=== PATIENT | male | born 1945 | race Caucasian/White ===

== ENCOUNTER 2016-08-17 11:41 | Inpatient (IN) | payer MEDICARE, BC ==
[2016-08-17] VITALS (9 sets, daily range): BP systolic 113–151; BP diastolic 57–79; PULSE 64–81; RESP 16–20; TEMP 98.4; O2SAT 96–100
[~2016-08-17] VITALS: Ht 175.3 cm; Wt 100.0 kg
[~2016-08-17 11:41] MED LIST: ALBU3NEB INH; ASPI81 PO; BUPR150T3 PO; CELE40TA PO; CITA20TA4 PO; DOCU100T9 PO; FLUO.05%ST TOP; GLUCTAB PO; LANTUS2P SC; LANTUSP SQ; LASI20TA PO; LISI-363 PO; METO50TA PO; NOVOLOGP2 SQ; SUBO2MIS SL; TAMS0.4C67 PO; ZOCO80TA PO; [UNRECOGNIZED DRUG - OTHER] PO
[2016-08-17] MEDS ORDERED: TETANUS/DIPHTHERIA TOXOID ADULT 0.5 ML VIAL IM ONE (12:15)
--- NOTE | 2016-08-17 12:20 | PD ---
HPI Chief Complaint: Fall Time Seen by Provider: 12:03 Travel History International Travel<30 days: No Contact w/Intl Traveler<30days: No Traveled to known affect area: No History of Present Illness HPI 70-year-old male with history of diabetes, diabetic neuropathy, lives alone, brought in by ambulance for evaluation of lower back pain, frequent falls, gait ataxia. The patient reports having difficulty ambulating for the last 2 weeks. Over the last 2 days he has fallen about 10 times. He states he lives alone, and stays in his wheelchair, however when he gets up to use a restroom he has been falling to the floor. No head injury or LOC. Lower back pain is moderate , radiates down his bilateral legs, worse with movements. No fevers. Patient has multiple abrasions and ecchymosis on his bilateral upper and lower extremities with a laceration to his right leg which he states occurred 2 days ago. He is complaining of a tingling sensation in his bilateral legs. She also reports being incontinent of urine, however this occurs when he is unable to stand up to use the restroom. PFSH Past Medical History Arthritis: Yes Anxiety: Yes Depression: Yes Heart Rhythm Problems: No Cancer: No Cardiac Catheterization: Yes (NO STENTS) Cardiovascular Problems: Yes High Cholesterol: Yes Chest Pain: No Congestive Heart Failure: Yes Diabetes: Yes Diminished Hearing: Yes (hard of hearing) Endocrine: Yes Gastrointestinal Disorders: Yes Genitourinary: No Hypertension: Yes Immune Disorder: No Musculoskeletal: Yes Neurologic: Yes (DIABETIC NEUROPATHY) Psychiatric: No Reproductive: No Respiratory: Yes (emphysema) Past Surgical History Other Surgery: Yes (spinal cyst removed, unknown details) Social History Alcohol Use: No Tobacco Use: Yes (states2 ppd cigarettes) Substance Use: Yes (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 rx'd pain meds for past eight years) Allergies-Medications (Allergen,Severity, Reaction): Coded Allergies: Cymbalta (Verified Allergy, Severe, Shortness of Breath, 08/17/16) Lyrica (Verified Allergy, Severe, Shortness of Breath, 08/17/16) Penicillin (Verified Allergy, Intermediate, HIVES, 08/17/16) Reported Meds & Prescriptions Reported Meds & Active Scripts Active Reported Naprosyn (Naproxen) 500 Mg Tab 500 Mg PO BID Take with food Dicyclomine (Dicyclomine HCl) 10 Mg Cap 10 Mg PO TID Pantoprazole (Pantoprazole Sodium) 40 Mg Tab 40 Mg PO DAILY Take 30 minutes before breakfast Amitriptyline (Amitriptyline HCl) 75 Mg Tab 75 Mg PO HS Potassium Chloride ER (Potassium Chloride) 10 Meq Cap 10 Meq PO DAILY Zocor (Simvastatin) 40 Mg Tab 40 Mg PO HS Fish Oil 1000 mg (Rosalia-3 Fatty Acids) 1 Cap Cap 1,000 Mg PO DAILY Lantus Inj (Insulin Glargine) 100 Unit/Ml Inj 24 Units SQ BID Nystatin Topical 100,000 unit/gm Oint 1 Applic TOPICAL BID Apply thin layer to affected area(s) Ibuprofen 400 Mg Tab 400 Mg PO TID PRN Hydroxyzine HCl 50 Mg Tab 50 Mg PO BID Fluocinonide Topical (Fluocinonide) 0.05% Cream 1 Applic TOPICAL BID PRN Apply thin layer to affected area(s) Flunisolide Nasal [place] (Flunisolide) 0.025 Mg/Act Naspr 2 [place] EACH NARE DAILY PRN Buprenorphine-Naloxone 8-2 Mg Subl 1 Tab SL BID Wellbutrin SR 12 HR (Bupropion HCl) 150 Mg Tab 150 Mg PO Q12HR Dulcolax Supp (Bisacodyl) 10 Mg Supp 10 Mg DE BID PRN Ventolin Hfa 18 GM Inh (Albuterol Sulfate) 90 Mcg/Act Aer 2 Puff INH Q6H PRN Tamsulosin (Tamsulosin HCl) 0.4 Mg Cap 0.4 Mg PO HS Lisinopril 10 Mg Tab 10 Mg PO DAILY Colace (Docusate Sodium) 100 Mg Cap 100 Mg PO BID PRN Miralax Powder (Polyethylene Glycol 3350 Powder) 17 Gm Powd 17 Gm PO DAILY PRN Mix and dissolve one measuring cap-ful (17 grams) in water or juice. Triamcinolone Topical (Triamcinolone Acetonide) 0.1 % Oint 1 Applic TOPICAL BID PRN Multi Vitamin (Multiple Vitamin) 1 Tab Tab 1 Tab PO DAILY Toprol XL (Metoprolol Succinate) 50 Mg Tab 50 Mg PO BID Metformin (Metformin HCl) 1,000 Mg Tab 1,000 Mg PO BID With meals Capsaicin Topical (Capsaicin) 0.025% Cream 1 Applic TOPICAL QID PRN Aspirin Adult Low Strength (Aspirin) 81 Mg Chew 81 Mg PO DAILY Novolog Inj (Insulin Aspart) 100 Unit/Ml Inj 30 Units SQ TID Review of Systems Except as stated in HPI: all other systems reviewed are Neg Physical Exam Narrative GENERAL: Well-developed, well-nourished, comfortable, no acute distress. SKIN: Warm and dry. Several abrasions/areas of ecchymosis to bilateral upper and lower extremities with a vertical laceration to his right anterior leg that is healing by secondary intent, no signs of infection. HEAD: Atraumatic. Normocephalic. EYES: Pupils equal and round. No scleral icterus. No injection or drainage. ENT: Mucous membranes pink and moist. NECK: Trachea midline. No JVD. CARDIOVASCULAR: Regular rate and rhythm. No murmur appreciated. RESPIRATORY: No accessory muscle use. Clear to auscultation. Breath sounds equal bilaterally. GASTROINTESTINAL: Abdomen soft, non-tender, nondistended. MUSCULOSKELETAL: No obvious deformities. No clubbing. No cyanosis. No edema. Midline lumbar spine tenderness without step-off. Normal range of motion in all joints and extremities. NEUROLOGICAL: Awake and alert. No obvious cranial nerve deficits. Normal speech. Ataxia/incoordination in bilateral lower extremities with muscle strength 4-5 in bilateral lower extremities. Patient reports numbness/tingling sensation when bilateral lower extremities are palpated. He is unable to extend his great toe bilaterally. No saddle anesthesia.Absent patellar tendon reflexes bilaterally. No clonus. PSYCHIATRIC: Appropriate mood and affect; insight and judgment normal. Data Data Last Documented VS Vital Signs Date Time Temp Pulse Resp B/P Pulse Ox O2 Delivery O2 Flow Rate FiO2 08/17/16 14:30 72 18 144/69 97 Room Air 08/17/16 11:42 98.4 Orders Complete Blood Count With Diff (08/17/16 12:13) Comprehensive Metabolic Panel (08/17/16 12:13) Magnesium (Mg) (08/17/16 12:13) Beta Hydroxybutyrate (Acetone) (08/17/16 12:13) Urinalysis - C+S If Indicated (08/17/16 12:13) Ecg Monitoring (08/17/16 12:13) Iv Access Insert/Monitor (08/17/16 12:13) Oximetry (08/17/16 12:13) NPO (08/17/16 12:13) Sodium Chloride 0.9% Flush (Ns Flush) (08/17/16 12:15) Ct Brain W/O Iv Contrast(Rout) (08/17/16 ) Tetanus/Diphtheria Tox Adult (Tetanus/Di (08/17/16 12:15) Lorazepam Inj (Ativan Inj) (08/17/16 13:30) Mri L Spine W/O Contrast (08/17/16 ) Dexamethasone Inj (Decadron Inj) (08/17/16 14:45) Mri T Spine W/O Contrast (08/17/16 ) Mri C Spine W/O Contrast (08/17/16 ) Lorazepam Inj (Ativan Inj) (08/17/16 15:15) Admit Order (Ed Use Only) (08/17/16 15:09) Labs Laboratory Tests Test 08/17/16 12:30 White Blood Count 8.5 TH/MM3 Red Blood Count 5.31 MIL/MM3 Hemoglobin 13.6 GM/DL Hematocrit 40.9 % Mean Corpuscular Volume 77.0 FL Mean Corpuscular Hemoglobin 25.6 PG Mean Corpuscular Hemoglobin 33.2 % Concent Red Cell Distribution Width 20.6 % Platelet Count 250 TH/MM3 Mean Platelet Volume 7.6 FL Neutrophils (%) (Auto) 61.1 % Lymphocytes (%) (Auto) 25.2 % Monocytes (%) (Auto) 8.6 % Eosinophils (%) (Auto) 4.2 % Basophils (%) (Auto) 0.9 % Neutrophils # (Auto) 5.2 TH/MM3 Lymphocytes # (Auto) 2.1 TH/MM3 Monocytes # (Auto) 0.7 TH/MM3 Eosinophils # (Auto) 0.4 TH/MM3 Basophils # (Auto) 0.1 TH/MM3 CBC Comment DIFF FINAL Differential Comment Urine Color YELLOW Urine Turbidity CLEAR Urine pH 6.0 Urine Specific [place] 1.020 Urine Protein NEG mg/dL Urine Glucose (UA) NEG mg/dL Urine Ketones NEG mg/dL Urine Occult Blood NEG Urine Nitrite NEG Urine Bilirubin NEG Urine Urobilinogen 2.0 MG/DL Urine Leukocyte Esterase SMALL Urine RBC 1 /hpf Urine WBC 3 /hpf Urine Squamous Epithelial <1 /hpf Cells Microscopic Urinalysis Comment CULT NOT INDICATED Sodium Level 137 MEQ/L Potassium Level 4.4 MEQ/L Chloride Level 100 MEQ/L Carbon Dioxide Level 31.6 MEQ/L Anion Gap 5 MEQ/L Blood Urea Nitrogen 23 MG/DL Creatinine 0.71 MG/DL Estimat Glomerular Filtration 110 ML/MIN Rate Random Glucose 103 MG/DL Calcium Level 8.9 MG/DL Magnesium Level 2.3 MG/DL Total Bilirubin 0.4 MG/DL Aspartate Amino Transf 46 U/L (AST/SGOT) Alanine Aminotransferase 54 U/L (ALT/SGPT) Alkaline Phosphatase 70 U/L Total Protein 6.8 GM/DL Albumin 3.3 GM/DL B-Hydroxybutyrate 0.10 MMOL/L MDM Medical Decision Making Medical Screen Exam Complete: Yes Emergency Medical Condition: Yes Differential Diagnosis Cauda equina syndrome, spinal stenosis, intracranial abnormality, metabolic abnormality, Narrative Course Vital signs show heart rate 64, blood pressure 113/65, pulse ox 98% on room air , oral temp of 98.4F. CBC is unremarkable. CMP is unremarkable. UA is within normal limits. CT head: No acute intracranial disease. MRI lumbar spine: CONCLUSION: 1. Severe central canal stenosis at the L4-5 level secondary to disc bulge and degenerative change involving the facets. 2. Moderate to severe central canal stenosis at the L3-4 level secondary to disc bulge and degenerative change involving the facets. 3. Mild central canal stenosis at the L1-2 and L2-3 levels. 4. Diffuse moderate to severe degenerative disc change. 5. Narrowing of the neuroforamina bilaterally at the L3-4 and L4-5 levels. Case discussed with neurosurgeon construction ironworker helper Dr. Briceno. He would like me to order stat MRI T and C-spine. He plans for emergent decompressive surgery after these studies are performed. Case discussed with medical device sales. The patient will be admitted to their service under Dr. Peres. Laceration on right leg occurred 2 days ago and will be allowed to heal by secondary intent. Several attempts were made to obtain T and C spine MRIs, however the patient complained of both pain and claustrophobia while laying flat in the MRI machine. He was given several doses of Ativan, however he was still unable to lay still for the exam. Neurosurgeon Dr. Briceno made aware of this. He will contact anesthesia to see if procedural sedation can be performed to obtain necessary MRIs. Diagnosis Primary Impression: Spinal cord compression Additional Impressions: Spinal stenosis of lumbar region Frequent falls Admitting Information Admitting Physician Requests: Admit Quinten Weathers MD Aug 17, 2016 12:20
[2016-08-17] MEDS ORDERED: TRIAM.1%T TOPICAL (12:43)
[2016-08-17] MEDS ORDERED: BUPR150CR PO (12:43)
[2016-08-17] MEDS ORDERED: TOPR50TA PO (12:43)
[2016-08-17] MEDS ORDERED: AMIT75TA2 PO (12:43)
[2016-08-17] MEDS ORDERED: OMEG100037 PO (12:43)
[2016-08-17] MEDS ORDERED: NOVOLOGSS SQ (12:43)
[2016-08-17] MEDS ORDERED: MIRA33504 PO (12:43)
[2016-08-17] MEDS ORDERED: NAPR500 PO (12:43)
[2016-08-17] MEDS ORDERED: DULC10SU3 PR (12:43)
[2016-08-17] MEDS ORDERED: BUPR1SUB6 SL (12:43)
[2016-08-17] MEDS ORDERED: MULT-135 PO (12:43)
[2016-08-17] MEDS ORDERED: COLA100C3 PO (12:43)
[2016-08-17] MEDS ORDERED: IBUP400T20 PO (12:43)
[2016-08-17] MEDS ORDERED: CAPS0.022 TOPICAL (12:43)
[2016-08-17] MEDS ORDERED: TAMS0.4C4 PO (12:43)
[2016-08-17] MEDS ORDERED: LANTUS2P SQ (12:43)
[2016-08-17] MEDS ORDERED: FLUO0.05 TOPICAL (12:43)
[2016-08-17] MEDS ORDERED: FLUN25I EACH NARE (12:43)
[2016-08-17] MEDS ORDERED: LISI10TA3 PO (12:43)
[2016-08-17] MEDS ORDERED: METF1000 PO (12:43)
[2016-08-17] MEDS ORDERED: DICY10CA12 PO (12:43)
[2016-08-17] MEDS ORDERED: HYDR50TA94 PO (12:43)
[2016-08-17] MEDS ORDERED: POTA10CA PO (12:43)
[2016-08-17] MEDS ORDERED: NYST100084 TOPICAL (12:43)
[2016-08-17] MEDS ORDERED: PANT40TA3 PO (12:43)
[2016-08-17] MEDS ORDERED: CITA20TA4 PO (12:43)
[2016-08-17] MEDS ORDERED: VENTAER INH (12:43)
[2016-08-17] MEDS ORDERED: ASPI81CH14 PO (12:43)
[2016-08-17] MEDS ORDERED: ZOCO40TA PO (12:43)
[2016-08-17 12:52] LABS: AUTOMATED NEUTROPHIL # 5.2 TH/MM3 (1.8-7.7); BASOPHIL # 0.1 TH/MM3 (0-0.2); BASOPHIL % 0.9 % (0.0-2.0); EOSINOPHIL # 0.4 TH/MM3 (0-0.4); EOSINOPHIL % 4.2 % (0.0-4.0); HEMATOCRIT 40.9 % (39.0-51.0); HEMO FLAGS DIFF FINAL; LYMPH % 25.2 % (9.0-44.0); LYMPHOCYTE # 2.1 TH/MM3 (1.0-4.8); MEAN CORPUSCULAR HEMOGLOBIN 25.6 PG (27.0-34.0); MEAN CORPUSCULAR HGB CONC 33.2 % (32.0-36.0); MONO % 8.6 % (0.0-8.0); NEUT % 61.1 % (16.0-70.0); PLATELET COUNT 250 TH/MM3 (150-450); RED BLOOD COUNT 5.31 MIL/MM3 (4.50-5.90); RED CELL DISTRIBUTION WIDTH 20.6 % (11.6-17.2); WHITE BLOOD COUNT 8.5 TH/MM3 (4.0-11.0)
[2016-08-17 13:01] LABS: BLOOD, URINE NEG (NEG); COMMENT (UR) CULT NOT INDICATED; CULTURE IF INDICATED CULT NOT INDICATED; GLUCOSE,URINE NEG (NEG); KETONE, URINE NEG (NEG); NITRITE,URINE NEG (NEG); SQUAMOUS EPITHELIAL CELL URINE <1 /hpf (0-5); URINE COLOR YELLOW (YELLW/STRAW)
--- NOTE | 2016-08-17 13:02 | RADRPT ---
EXAM DATE/TIME: 08/17/2016 12:51 [facility] COMPARISON: No previous studies available for comparison. INDICATIONS : Frequent falls. Weakness. RADIATION DOSE: 45.60 CTDIvol (mGy) MEDICAL HISTORY : Cardiovascular disease. Hypertension. Diabetes. SURGICAL HISTORY : None. ENCOUNTER: Initial ACUITY: 2 days PAIN SCALE: 5/10 LOCATION: cranial TECHNIQUE: Multiple contiguous axial images were obtained of the head. Using automated exposure control and adj ustment of the mA and/or kV according to patient size, radiation dose was kept as low as reasonably a chievable to obtain optimal diagnostic quality images. FINDINGS: CEREBRUM: The ventricles are normal for age. No evidence of midline shift, mass lesion, hemorrhage or acute in farction. No extra-axial fluid collections are seen. POSTERIOR FOSSA: The cerebellum and brainstem are intact. The 4th ventricle is midline. The cerebellopontine angle i s unremarkable. EXTRACRANIAL: The visualized portion of the orbits is intact. SKULL: The calvaria is intact. No evidence of skull fracture. CONCLUSION: No acute intracranial disease. Isauro Farnsworth MD on August 17, 2016 at 12:59 Board Certified Radiologist. This report was verified electronically.
[2016-08-17 13:15] LABS: ALT (GPT) 54 U/L (12-78); ANION GAP 5 MEQ/L (5-15); AST (GOT) 46 U/L (15-37); BICARBONATE 31.6 MEQ/L (21.0-32.0); BLOOD UREA NITROGEN 23 MG/DL (7-18); CHLORIDE 100 MEQ/L (98-107); GLOMERULAR FILTRATION RATE 110 ML/MIN (>89); MAGNESIUM 2.3 MG/DL (1.5-2.5); POTASSIUM 4.4 MEQ/L (3.5-5.1); SODIUM (NA) 137 MEQ/L (136-145)
[2016-08-17 13:23] LABS: ALKALINE PHOSPHATASE 70 U/L (45-117); TOTAL BILIRUBIN ADULT 0.4 MG/DL (0.2-1.0)
[2016-08-17] MEDS ORDERED: LORazepam 2 MG/ML VIAL IV PUSH ONE ×4 (13:30→16:00)
[2016-08-17] MEDS: SODIUM CHLORIDE 0.9% FLUSH 5 ML FLUSH IVF PRN ×2 (13:32→15:18)
--- NOTE | 2016-08-17 14:30 | RADRPT ---
EXAM DATE/TIME: 08/17/2016 13:42 [facility] COMPARISON: No previous studies available for comparison. INDICATIONS : Inability to ambulate. Low back pain. MEDICAL HISTORY : Diabetes mellitus type 2. SURGICAL HISTORY : Fusion, lumbar. ENCOUNTER: Initial ACUITY: 1 day PAIN SCORE: 5/10 LOCATION: Paraspinal TECHNIQUE: Multiplanar multisequence MRI of the lumbar spine was performed without contrast. FINDINGS: The study is degraded by mild motion artifact. The most caudal appearing lumbar vertebra is numbered as L5. VERTEBRAE: The vertebral bodies are intact. There is discogenic edema and Modic type changes in the endplates. N ormal alignment. DISCS: Diffuse degenerative disc changes are noted with disc space narrowing, sclerosis and hypertrophic bi nge. There is desiccation. CONUS: Normal level and configuration. T12-L1: The thecal sac has a normal diameter. No evidence of disc bulge or protrusion. The neural foramina are patent bilaterally. L1-L2: There is a diffuse annular disc bulge with flattening of the anterior thecal sac and no focal protrus ion. There are degenerative change involving the facet joints with mild central canal stenosis. L2-L3: There is a diffuse annular disc bulge with mild flattening of the anterior thecal sac and no focal pr otrusion. There are mild degenerative changes involving the facet joints. The neural foramina are pat ent. There is mild central canal stenosis. L3-L4: There is a moderate annular disc poles with flattening of anterior thecal sac and narrowing of the ne ural foramina bilaterally. There are degenerative changes involving facet joints with moderate to sev ere central canal stenosis. L4-L5: There is a diffuse annular disc poles with flattening of the anterior thecal sac and narrowing of the neural foramina. There are degenerative changes involving the facet joints with severe central canal stenosis. L5-S1: Annular disc bulge with mild flattening of the anterior thecal sac and no focal protrusion. There is narrowing of the neural foramina right greater than left. Visualization is suboptimal secondary to mo tion artifact. There are degenerative changes involving the facet joints with no central canal stenos is. CONCLUSION: 1. Severe central canal stenosis at the L4-5 level secondary to disc bulge and degenerative change in volving the facets. 2. Moderate to severe central canal stenosis at the L3-4 level secondary to disc bulge and degenerati ve change involving the facets. 3. Mild central canal stenosis at the L1-2 and L2-3 levels. 4. Diffuse moderate to severe degenerative disc change. 5. Narrowing of the neuroforamina bilaterally at the L3-4 and L4-5 levels. Sandor Escoto MD on August 17, 2016 at 14:21 Board Certified Radiologist. This report was verified electronically.
[2016-08-17] MEDS ORDERED: DEXAMETHASONE SOD PHOS 20 MG/5 ML VIAL IV PUSH ONE (14:45)
--- NOTE | 2016-08-17 15:11 | HHI.HP ---
[facility] Service Family Medicine Primary Care Physician [facility] Admission Diagnosis spinal stenosis, spinal cord compression, frequent falls Diagnoses: International Travel<30 Days: No Contact w/Intl Traveler<30days: No Known Affected Area: No History of Present Illness History limited due to Ativan given at time of interview as well as being a poor historian. Patient is a 70-year-old male with PMH significant for DM who presents today due to frequent falls over the last week. Reports that his legs do not hold him up. Has fallen about 10 times within the last 48 hours. Denies any preceding events such as trauma. Denies any urinary retention or incontinence or bowel incontinence. Reports sharp lower back pain that radiates down to bilateral extremities. Endorses bilateral peripheral neuropathy that limits some of his sensation/pain. Prior to this week he endorses some lower back pain over the last several weeks but otherwise reports no acute changes. Symptoms improved when leaning forward. (Rajni Gomez MD R2) Review of Systems ROS Limitations: Poor Historian Constitutional: DENIES: Fever, Change in appetite Eyes: DENIES: Blurred vision Ears, nose, mouth, throat: DENIES: Throat pain, Running Nose Respiratory: DENIES: Shortness of breath Cardiovascular: DENIES: Chest pain, Lower Extremity Edema Gastrointestinal: DENIES: Abdominal pain, Constipation, Diarrhea, Nausea, Vomiting Genitourinary: DENIES: Urinary frequency, Urinary incontinence, Dysuria Musculoskeletal: COMPLAINS OF: Back pain Hematologic/lymphatic: COMPLAINS OF: Bruising Neurologic: COMPLAINS OF: Abnormal gait, DENIES: Headache (Rajni Gomez MD R2) Past Family Social History Past Medical History Diabetes complicated by peripheral neuropathy HTN Depression HLD Past Surgical History Left knee surgery Unknown upper cervical/thoracic spinal surgery Reported Medications Reported Meds & Active Scripts Active Reported Naprosyn (Naproxen) 500 Mg Tab 500 Mg PO BID Take with food Dicyclomine (Dicyclomine HCl) 10 Mg Cap 10 Mg PO TID Pantoprazole (Pantoprazole Sodium) 40 Mg Tab 40 Mg PO DAILY Take 30 minutes before breakfast Amitriptyline (Amitriptyline HCl) 75 Mg Tab 75 Mg PO HS Potassium Chloride ER (Potassium Chloride) 10 Meq Cap 10 Meq PO DAILY Zocor (Simvastatin) 40 Mg Tab 40 Mg PO HS Fish Oil 1000 mg ([place]-3 Fatty Acids) 1 Cap Cap 1,000 Mg PO DAILY Lantus Inj (Insulin Glargine) 100 Unit/Ml Inj 24 Units SQ BID Nystatin Topical 100,000 unit/gm Oint 1 Applic TOPICAL BID Apply thin layer to affected area(s) Ibuprofen 400 Mg Tab 400 Mg PO TID PRN Hydroxyzine HCl 50 Mg Tab 50 Mg PO BID Fluocinonide Topical (Fluocinonide) 0.05% Cream 1 Applic TOPICAL BID PRN Apply thin layer to affected area(s) Flunisolide Nasal [place] (Flunisolide) 0.025 Mg/Act Naspr 2 [place] EACH NARE DAILY PRN Buprenorphine-Naloxone 8-2 Mg Subl 1 Tab SL BID Wellbutrin SR 12 HR (Bupropion HCl) 150 Mg Tab 150 Mg PO Q12HR Dulcolax Supp (Bisacodyl) 10 Mg Supp 10 Mg NV BID PRN Ventolin Hfa 18 GM Inh (Albuterol Sulfate) 90 Mcg/Act Aer 2 Puff INH Q6H PRN Tamsulosin (Tamsulosin HCl) 0.4 Mg Cap 0.4 Mg PO HS Lisinopril 10 Mg Tab 10 Mg PO DAILY Colace (Docusate Sodium) 100 Mg Cap 100 Mg PO BID PRN Miralax Powder (Polyethylene Glycol 3350 Powder) 17 Gm Powd 17 Gm PO DAILY PRN Mix and dissolve one measuring cap-ful (17 grams) in water or juice. Triamcinolone Topical (Triamcinolone Acetonide) 0.1 % Oint 1 Applic TOPICAL BID PRN Multi Vitamin (Multiple Vitamin) 1 Tab Tab 1 Tab PO DAILY Toprol XL (Metoprolol Succinate) 50 Mg Tab 50 Mg PO BID Metformin (Metformin HCl) 1,000 Mg Tab 1,000 Mg PO BID With meals Capsaicin Topical (Capsaicin) 0.025% Cream 1 Applic TOPICAL QID PRN Aspirin Adult Low Strength (Aspirin) 81 Mg Chew 81 Mg PO DAILY Novolog Inj (Insulin Aspart) 100 Unit/Ml Inj 30 Units SQ TID (Rajni Gomez MD R2) Allergies: Coded Allergies: Cymbalta (Verified Allergy, Severe, Shortness of Breath, 08/17/16) Lyrica (Verified Allergy, Severe, Shortness of Breath, 08/17/16) Penicillin (Verified Allergy, Intermediate, HIVES, 08/17/16) Family History Unknown. Reports mother and father were healthy Social History Lives alone Tobacco: 1.5ppd x45yrs Alcohol: Denies Illicit: Denies (Rajni Gomez MD R2) Physical Exam Vital Signs Vital Signs Date Time Temp Pulse Resp B/P Pulse Ox O2 Delivery O2 Flow Rate FiO2 08/17/16 12:30 99 Room Air 08/17/16 12:24 100 Room Air 08/17/16 11:42 98.4 64 17 113/65 98 Physical Exam GENERAL: This is a well-nourished, well-developed patient, in no apparent distress. Sitting comfortably in bed. SKIN: Venous stasis hyperpigmentation on bilateral lower extremities. Multiple superficial lacerations over her right lower extremity from falls. Multiple bruises of varying ages on right mid back, bilateral buttocks, sacrum, and right elbow. EYES: Pupils equal round and reactive. Extraocular motions intact. No scleral icterus. No injection or drainage. ENT: Nose without bleeding, purulent drainage. Throat without erythema, tonsillar hypertrophy or exudate. Uvula midline. Airway patent. NECK: No lymphadenopathy. CARDIOVASCULAR: Regular rate and rhythm without murmurs, gallops, or rubs. RESPIRATORY: Diffuse bilateral wheezes. Good air movement bilaterally. GASTROINTESTINAL: Abdomen soft, non-tender, nondistended. No hepato-splenomegaly , or palpable masses. No guarding. MUSCULOSKELETAL: Extremities without clubbing, cyanosis. 1+ pitting edema. No calf tenderness. Able to move bilateral feet. Able to sit up and turn in bed independently. NEUROLOGICAL: Awake and alert. Normal speech. Laboratory Laboratory Tests Test 08/17/16 12:30 White Blood Count 8.5 Red Blood Count 5.31 Hemoglobin 13.6 Hematocrit 40.9 Mean Corpuscular Volume 77.0 Mean Corpuscular Hemoglobin 25.6 Mean Corpuscular Hemoglobin 33.2 Concent Red Cell Distribution Width 20.6 Platelet Count 250 Mean Platelet Volume 7.6 Neutrophils (%) (Auto) 61.1 Lymphocytes (%) (Auto) 25.2 Monocytes (%) (Auto) 8.6 Eosinophils (%) (Auto) 4.2 Basophils (%) (Auto) 0.9 Neutrophils # (Auto) 5.2 Lymphocytes # (Auto) 2.1 Monocytes # (Auto) 0.7 Eosinophils # (Auto) 0.4 Basophils # (Auto) 0.1 CBC Comment DIFF FINAL Differential Comment Urine Color YELLOW Urine Turbidity CLEAR Urine pH 6.0 Urine Specific [place] 1.020 Urine Protein NEG Urine Glucose (UA) NEG Urine Ketones NEG Urine Occult Blood NEG Urine Nitrite NEG Urine Bilirubin NEG Urine Urobilinogen 2.0 Urine Leukocyte Esterase SMALL Urine RBC 1 Urine WBC 3 Urine Squamous Epithelial <1 Cells Microscopic Urinalysis Comment CULT NOT INDICATED Sodium Level 137 Potassium Level 4.4 Chloride Level 100 Carbon Dioxide Level 31.6 Anion Gap 5 Blood Urea Nitrogen 23 Creatinine 0.71 Estimat Glomerular Filtration 110 Rate Random Glucose 103 Calcium Level 8.9 Magnesium Level 2.3 Total Bilirubin 0.4 Aspartate Amino Transf 46 (AST/SGOT) Alanine Aminotransferase 54 (ALT/SGPT) Alkaline Phosphatase 70 Total Protein 6.8 Albumin 3.3 B-Hydroxybutyrate 0.10 (Rajni Gomez MD R2) Result Diagram: 08/17/16 1230 08/17/16 1230 Imaging Last Impressions Lumbar Spine MRI 08/17/16 0000 Signed Impressions: Service Date/Time: Wednesday, August 17, 2016 13:42 - CONCLUSION: 1. Severe central canal stenosis at the L4-5 level secondary to disc bulge and degenerative change involving the facets. 2. Moderate to severe central canal stenosis at the L3-4 level secondary to disc bulge and degenerative change involving the facets. 3. Mild central canal stenosis at the L1-2 and L2-3 levels. 4. Diffuse moderate to severe degenerative disc change. 5. Narrowing of the neuroforamina bilaterally at the L3-4 and L4-5 levels. Sandor Escoto MD Head CT 08/17/16 0000 Signed Impressions: Service Date/Time: Wednesday, August 17, 2016 12:51 - CONCLUSION: No acute intracranial disease. Isauro Farnsworth MD (Rajni Gomez MD R2) Assessment and Plan Assessment and Plan 70yo male with history significant for diabetes. Admitted due to spinal stenosis causing frequent falls. Code Status full Discussed Condition With Dr. Peres and Dr. Galeas (Rajni Gomez MD R2) Attending Attestation Patient seen and examined. Case reviewed and discussed with the resident team. Agree with plan of care as discussed with me and documented in the resident note. (Brenda Peres MD) Problem List: (1) Spinal stenosis of lumbar region Status: Acute Plan: Frequent falls 1 week with no associated bowel or bladder incontinence/ retention. Endorses lower back pain that radiates down to bilateral legs. No preceding events. -CBC, BMP, UA unremarkable -UDS positive for benzos, unsure if patient had already received Ativan prior to UDS -neuro checks -monitor I&O Neurosurgery consulted: appreciate recommendations * Per ED physician: plan for decompressive surgery * Recommended MRI of Cervical and thoracic spine Imaging: * Thoracic MRI: pending * Cervical MRI: pending * Lumbar MRI: Severe central canal stenosis at the L4-L5 level secondary to disc bulge and degenerative disease. Moderate to severe central canal stenosis at the L3-L4 level secondary to disc bulge and degenerative changes. Mild central canal stenosis at the L1 and L2-3 levels. Diffuse moderate to severe degenerative disc disease. Narrowing of the neuroforamen bilaterally at the L3- L4 and L4 to 5 levels. * Head CT: No acute intracranial disease Medications: * Decadron 10 mg 1 * Decadron 4 mg q8 * HOLD nicotine patch (2) Frequent falls Status: Acute Plan: See plan above (3) DM (diabetes mellitus) Status: Chronic Plan: Reports use of 16 units of Lantus. -Levemir 5 units BID + sliding scale -Hold metformin -Continue amitriptyline but at a decreased dose 50mg HS (4) Nutrition, metabolism, and development symptoms Status: Acute Plan: Diet: NPO Fluids: NS at 100 Electrolytes: unremarkable DVT PPX: SCDs due to upcoming surgery GI PPX: Protonix Chronic Conditions: * HTN: Lisinopril 10mg * HLD: continue home pravastatin 80mg daily * Depression: continue home Celexa but at decreased dose, due to multiple antidepressant and pt unsure of medications, will hold on Wellbutrin * BPH: continue home tamsulosin (Rajni Gomez MD R2) Physician Certification 2 Midnight Certification Type: Admission for Inpatient Services Order for Inpatient Services The services are ordered in accordance with Medicare regulations or non- Medicare payer requirements, as applicable. In the case of services not specified as inpatient-only, they are appropriately provided as inpatient services in accordance with the 2-midnight benchmark. Estimated LOS (days): 3 days is the estimated time the patient will need to remain in the hospital, assuming treatment plan goals are met and no additional complications. Post-Hospital Plan: SNF (Rajni Gomez MD R2) Problem Qualifiers (1) DM (diabetes mellitus): Rajni Gomez MD R2 Aug 17, 2016 15:11 Brenda Peres MD Aug 18, 2016 08:05
[2016-08-17] MEDS ORDERED: NALOXONE HCL 0.4 MG/ML AMP IV PRN (16:00)
[2016-08-17] MEDS ORDERED: GLUCAGON 1 MG/ML VIAL OTHER PRN (16:00)
[2016-08-17] MEDS ORDERED: ACETAMINOPHEN 325 MG TAB PO PRN (16:00)
[2016-08-17] MEDS ORDERED: ACETAMINOPHEN/HYDROcodone 325 MG/10 MG TAB PO PRN (16:00)
[2016-08-17] MEDS ORDERED: SODIUM CHLORIDE 0.9% FLUSH 5 ML FLUSH FLUSH PRN (16:00)
[2016-08-17] MEDS: INSULIN ASPART SUPPLEMENTAL SCALE SQ SCH ×2 (16:00→21:07)
[2016-08-17] MEDS ORDERED: ENALAPRILAT 1.25 MG/ML VIAL IV PRN (16:00)
[2016-08-17] MEDS ORDERED: DEXTROSE 50% IN WATER 50 ML VIAL(D50) IV PUSH PRN (16:00)
[2016-08-17] MEDS ORDERED: ACETAMINOPHEN/HYDROcodone 325 MG/5 MG TAB PO PRN (16:00)
[2016-08-17] MEDS ORDERED: RESP: ALBUTEROL 2.5 MG/IPRATROPIUM 0.5 MG NEB (PRN) INH (16:15)
[2016-08-17] MEDS ORDERED: RESP: ALBUTEROL 2.5 MG/3 ML NEB (PRN) INH (16:15)
[2016-08-17 16:43] LABS: AMPHETAMINE, URINE NEG (NEG); BARBITURATES, URINE NEG (NEG); COCAINE, URINE NEG (NEG)
[2016-08-17] MEDS: MORPHINE SULFATE 4 MG/ML INJ IV PRN (17:10)
--- NOTE | 2016-08-17 17:19 | HHI.FPPN ---
Subjective Remarks 70 yo male who has diabetes and peripheral neuropathy who has been falling for 10 days and has fallen 10 times in the last 48 hours, sustaining multiple superficial lacerations and bruises of both LE. He cannot feel his legs adequately to maintain his balance. He reports multiple soft tissue injuries over the past few weeks. [facility] and has recently had a change in his diabetes medication doses. Unable to stand to void his bladder but has not had any incontinence of bowel or bladder. See H&P for this admission for past family, surgery and social history. ROS other than as above negative. Objective Vitals Vital Signs Date Time Temp Pulse Resp B/P Pulse Ox O2 Delivery O2 Flow Rate FiO2 08/17/16 16:30 78 18 141/74 97 Room Air 08/17/16 15:52 97 21 08/17/16 14:30 72 18 144/69 97 Room Air 08/17/16 12:30 99 Room Air 08/17/16 12:30 67 18 151/78 97 Room Air 08/17/16 12:24 100 Room Air 08/17/16 11:42 98.4 64 17 113/65 98 Result Diagram: 08/17/16 1230 08/17/16 1230 Other Results Laboratory Tests Test 08/17/16 12:30 Mean Corpuscular Volume 77.0 FL Mean Corpuscular Hemoglobin 25.6 PG Red Cell Distribution Width 20.6 % Monocytes (%) (Auto) 8.6 % Eosinophils (%) (Auto) 4.2 % Urine Leukocyte Esterase SMALL Blood Urea Nitrogen 23 MG/DL Aspartate Amino Transf 46 U/L (AST/SGOT) Albumin 3.3 GM/DL Urine Benzodiazepines Screen POS Imaging Last Impressions Lumbar Spine MRI 08/17/16 0000 Signed Impressions: Service Date/Time: Wednesday, August 17, 2016 13:42 - CONCLUSION: 1. Severe central canal stenosis at the L4-5 level secondary to disc bulge and degenerative change involving the facets. 2. Moderate to severe central canal stenosis at the L3-4 level secondary to disc bulge and degenerative change involving the facets. 3. Mild central canal stenosis at the L1-2 and L2-3 levels. 4. Diffuse moderate to severe degenerative disc change. 5. Narrowing of the neuroforamina bilaterally at the L3-4 and L4-5 levels. Sandor Escoto MD Head CT 08/17/16 0000 Signed Impressions: Service Date/Time: Wednesday, August 17, 2016 12:51 - CONCLUSION: No acute intracranial disease. Isauro Farnsworth MD Objective Remarks O. CONSTITUTIONAL/GEN: normally nourished, in NAD. EYES: conjunctiva normal, PERRLA, EOMI. ENT: Mouth and pharynx normal. NECK: No thyromegaly LUNGS: clear A-P, respiratory effort is normal. CARDIOVASCULAR: RR without murmur or gallop. No significant edema. GI/ABD: soft without masses, without organomegaly. NEURO: unable to dorsiflex his great toes; sensation decreased both LE> SKIN: hemosiderin deposition both LE with superficial lacerations from recent falls. Large areas of ecchymosis on back, right elbow, buttocks and LE HEME/LYMPH: no petechia or significant adenopathy MUSC: back is normal in appearance except for ecchymoses PSYCH/MENTAL STATUS: Alert and oriented x 3. Somewhat confused at times. A/P Assessment and Plan Severe spinal stenosis in a 70 yo male wit diabetes and multiple comorbidities Attending Attestation Patient seen and examined. Case reviewed and discussed with the resident team. Agree with plan of care as discussed with me and documented in the resident note. Brenda Peres MD Aug 17, 2016 17:19
[2016-08-17] MEDS: SODIUM CHLOR 0.9% 1000 ML INJ 1,000 ML IV SCH (17:34)
[2016-08-17] MEDS: PANTOPRAZOLE SODIUM 40 MG VIAL IV PUSH SCH (20:00)
--- NOTE | 2016-08-17 20:42 | PD.CONS ---
History of Present Illness Service Neurosurgery Consult Requested By Emergency room- Reason for Consult Myelopathy Primary Care Physician [facility] Diagnoses: History of Present Illness 70-year-old male presents to the emergency room today with complaint of difficulty ambulating, frequent falls. He has fallen approximately 10 times in the past couple of days. He states that 2 weeks ago he noted onset of numbness in the upper and lower extremities with difficulty with upper extremity coordination and gait difficulty. The symptoms progressed gradually over the first week, and have stabilized somewhat over the past week. He denies any bowel or bladder dysfunction. He has no headaches or blurred vision. No speech difficulty or memory loss. Occasional spasms in the lower extremities. Physical history of spinal surgery approximately 4 years ago at the [facility] in [place]. He states that he had some difficulty with ambulation prior to that surgery, which improved after the procedure. Review of Systems Constitutional: COMPLAINS OF: Fatigue, DENIES: Fever, Weight loss, Change in appetite Endocrine: DENIES: Heat/cold intolerance Eyes: DENIES: Blurred vision, Diplopia Ears, nose, mouth, throat: DENIES: Hearing loss, Vertigo Respiratory: DENIES: Cough, Shortness of breath Cardiovascular: DENIES: Chest pain, Palpitations Gastrointestinal: DENIES: Abdominal pain, Constipation, Diarrhea, Nausea Genitourinary: DENIES: Urinary frequency, Urinary incontinence Musculoskeletal: COMPLAINS OF: Joint pain, Muscle aches, Stiffness, Back pain, Neck pain Integumentary: DENIES: Rash Hematologic/lymphatic: COMPLAINS OF: Bruising Neurologic: COMPLAINS OF: Abnormal gait, Localized weakness, Paresthesias, Poor Balance, DENIES: Headache, Tremor Psychiatric: COMPLAINS OF: Depression, DENIES: Anxiety, Confusion Past Family Social History Allergies: Coded Allergies: Cymbalta (Verified Allergy, Severe, Shortness of Breath, 08/17/16) Lyrica (Verified Allergy, Severe, Shortness of Breath, 08/17/16) Penicillin (Verified Allergy, Intermediate, HIVES, 08/17/16) Past Medical History Diabetes Hypertension Hyperlipidemia Depression Chronic back pain Coronary artery disease-previous [place] Peripheral neuropathy Past Surgical History Left knee surgery Spinal surgery apparent removal of the spinal cyst in [place] approximately 4 years ago. Reported Medications Reported Meds & Active Scripts Active Reported Naprosyn (Naproxen) 500 Mg Tab 500 Mg PO BID Take with food Dicyclomine (Dicyclomine HCl) 10 Mg Cap 10 Mg PO TID Pantoprazole (Pantoprazole Sodium) 40 Mg Tab 40 Mg PO DAILY Take 30 minutes before breakfast Amitriptyline (Amitriptyline HCl) 75 Mg Tab 75 Mg PO HS Potassium Chloride ER (Potassium Chloride) 10 Meq Cap 10 Meq PO DAILY Zocor (Simvastatin) 40 Mg Tab 40 Mg PO HS Fish Oil 1000 mg (Wheeler-3 Fatty Acids) 1 Cap Cap 1,000 Mg PO DAILY Lantus Inj (Insulin Glargine) 100 Unit/Ml Inj 24 Units SQ BID Nystatin Topical 100,000 unit/gm Oint 1 Applic TOPICAL BID Apply thin layer to affected area(s) Ibuprofen 400 Mg Tab 400 Mg PO TID PRN Hydroxyzine HCl 50 Mg Tab 50 Mg PO BID Fluocinonide Topical (Fluocinonide) 0.05% Cream 1 Applic TOPICAL BID PRN Apply thin layer to affected area(s) Flunisolide Nasal [place] (Flunisolide) 0.025 Mg/Act Naspr 2 [place] EACH NARE DAILY PRN Buprenorphine-Naloxone 8-2 Mg Subl 1 Tab SL BID Wellbutrin SR 12 HR (Bupropion HCl) 150 Mg Tab 150 Mg PO Q12HR Dulcolax Supp (Bisacodyl) 10 Mg Supp 10 Mg WI BID PRN Ventolin Hfa 18 GM Inh (Albuterol Sulfate) 90 Mcg/Act Aer 2 Puff INH Q6H PRN Tamsulosin (Tamsulosin HCl) 0.4 Mg Cap 0.4 Mg PO HS Lisinopril 10 Mg Tab 10 Mg PO DAILY Colace (Docusate Sodium) 100 Mg Cap 100 Mg PO BID PRN Miralax Powder (Polyethylene Glycol 3350 Powder) 17 Gm Powd 17 Gm PO DAILY PRN Mix and dissolve one measuring cap-ful (17 grams) in water or juice. Triamcinolone Topical (Triamcinolone Acetonide) 0.1 % Oint 1 Applic TOPICAL BID PRN Multi Vitamin (Multiple Vitamin) 1 Tab Tab 1 Tab PO DAILY Toprol XL (Metoprolol Succinate) 50 Mg Tab 50 Mg PO BID Metformin (Metformin HCl) 1,000 Mg Tab 1,000 Mg PO BID With meals Capsaicin Topical (Capsaicin) 0.025% Cream 1 Applic TOPICAL QID PRN Aspirin Adult Low Strength (Aspirin) 81 Mg Chew 81 Mg PO DAILY Novolog Inj (Insulin Aspart) 100 Unit/Ml Inj 30 Units SQ TID Family History Negative cardiac disease, cancer Social History Smokes 1-1/2 pack cigarettes per day Denies significant alcohol use No illicit drug use He lives alone Physical Exam Vital Signs Vital Signs Date Time Temp Pulse Resp B/P Pulse Ox O2 Delivery O2 Flow Rate FiO2 08/17/16 19:43 65 20 126/69 96 Nasal Cannula 2 08/17/16 19:40 98 08/17/16 18:00 81 16 122/57 96 Room Air 08/17/16 16:30 78 18 141/74 97 Room Air 08/17/16 15:52 97 21 08/17/16 14:30 72 18 144/69 97 Room Air 08/17/16 12:30 99 Room Air 08/17/16 12:30 67 18 151/78 97 Room Air 08/17/16 12:24 100 Room Air 08/17/16 11:42 98.4 64 17 113/65 98 Physical Exam GENERAL: Moderately obese male, somewhat disheveled appearance. SKIN: Numerous recent and remote areas of contusion, ecchymosis, superficial lacerations of the upper and lower extremities. Positive venous stasis skin changes in the lower extremities. HEAD: Atraumatic. Normocephalic. No temporal or scalp tenderness. EYES: Sclerae are clear and nonicteric. ENT: Edentulous. Positive dentures. No facial fracture or deformity NECK: Moderate cervical tenderness. There is a prominent chronic incision in the mid to upper thoracic midline with poor overall healing of the incision site. There appears to be palpable wires immediately beneath the skin surface, but no protrusion through the skin and no definite sign of infection. CARDIOVASCULAR: Regular rate and rhythm without murmurs, gallops, or rubs. RESPIRATORY: Clear to auscultation. No rhonchi. Mild inspiratory wheeze GASTROINTESTINAL: Abdomen soft, non-tender, mildly distended. No hepato- splenomegaly, or palpable masses. No guarding. MUSCULOSKELETAL: Positive discomfort in the right greater than left knees with range of motion. Approximately 15 loss of extension right knee. Moderate distal lower extremity edema. Posterior tibial pulse 1+ bilateral. Mild muscle wasting in the lateral hand intrinsics without fasciculations. NEUROLOGICAL: At least mild lethargy. He quickly drifts off to sleep when not stimulated. His speech is somewhat slow but clear. No significant dysarthria. He answers simple questions with a few words. He is a poor historian, appears to have mild to moderate confusion and significant recent and remote memory loss. He has mild difficulty following simple commands. Pupils are 3 mm minimally reactive Extraocular movements are conjugate Facial sensory motor testing intact Plan protrude slightly midline Symmetric bilateral shoulder shrug Sensation moderately diminished to light touch in the distal lower greater than upper extremities with complaint of paresthesia in all extremities Strength is mostly 3 right, 4 left deltoids and biceps, 2+ right, 3 left triceps , 2 right and left hand intrinsics Strength is diminished to 2/5 iliopsoas with 2/5 right and 3/5 left quadriceps and hamstrings, mostly 4-5/5 bilateral distal lower extremity motor function Delroy's response moderate positive bilateral No ankle clonus Plantar response mildly extensor bilateral with quadriceps contraction. Laboratory Laboratory Tests Test 08/17/16 12:30 White Blood Count 8.5 Red Blood Count 5.31 Hemoglobin 13.6 Hematocrit 40.9 Mean Corpuscular Volume 77.0 Mean Corpuscular Hemoglobin 25.6 Mean Corpuscular Hemoglobin 33.2 Concent Red Cell Distribution Width 20.6 Platelet Count 250 Mean Platelet Volume 7.6 Neutrophils (%) (Auto) 61.1 Lymphocytes (%) (Auto) 25.2 Monocytes (%) (Auto) 8.6 Eosinophils (%) (Auto) 4.2 Basophils (%) (Auto) 0.9 Neutrophils # (Auto) 5.2 Lymphocytes # (Auto) 2.1 Monocytes # (Auto) 0.7 Eosinophils # (Auto) 0.4 Basophils # (Auto) 0.1 CBC Comment DIFF FINAL Differential Comment Urine Color YELLOW Urine Turbidity CLEAR Urine pH 6.0 Urine Specific [place] 1.020 Urine Protein NEG Urine Glucose (UA) NEG Urine Ketones NEG Urine Occult Blood NEG Urine Nitrite NEG Urine Bilirubin NEG Urine Urobilinogen 2.0 Urine Leukocyte Esterase SMALL Urine RBC 1 Urine WBC 3 Urine Squamous Epithelial <1 Cells Microscopic Urinalysis Comment CULT NOT INDICATED Sodium Level 137 Potassium Level 4.4 Chloride Level 100 Carbon Dioxide Level 31.6 Anion Gap 5 Blood Urea Nitrogen 23 Creatinine 0.71 Estimat Glomerular Filtration 110 Rate Random Glucose 103 Calcium Level 8.9 Magnesium Level 2.3 Total Bilirubin 0.4 Aspartate Amino Transf 46 (AST/SGOT) Alanine Aminotransferase 54 (ALT/SGPT) Alkaline Phosphatase 70 Total Protein 6.8 Albumin 3.3 Urine Opiates Screen NEG Urine Barbiturates Screen NEG Urine Amphetamines Screen NEG Urine Benzodiazepines Screen POS Urine Cocaine Screen NEG Urine Cannabinoids Screen NEG B-Hydroxybutyrate 0.10 Result Diagram: 08/17/16 1230 08/17/16 1230 Imaging The patient's head CT and lumbar spine MRI from 08/17/16 images of been reviewed. There is approximately 4 mm AP thecal sac to mention at the L4 5 level. Lesser stenosis at L2-3. There is severe stenosis at the T10-11 level noted at the very upper aspect of the MRI sagittal image, with significant cord edema. Lumbar Spine MRI 08/17/16 0000 Signed Impressions: Service Date/Time: Wednesday, August 17, 2016 13:42 - CONCLUSION: 1. Severe central canal stenosis at the L4-5 level secondary to disc bulge and degenerative change involving the facets. 2. Moderate to severe central canal stenosis at the L3-4 level secondary to disc bulge and degenerative change involving the facets. 3. Mild central canal stenosis at the L1-2 and L2-3 levels. 4. Diffuse moderate to severe degenerative disc change. 5. Narrowing of the neuroforamina bilaterally at the L3-4 and L4-5 levels. Sandor Escoto MD Head CT 08/17/16 0000 Signed Impressions: Service Date/Time: Wednesday, August 17, 2016 12:51 - CONCLUSION: No acute intracranial disease. Isauro Farnsworth MD Assessment and Plan Assessment and Plan Impression: 1. Thoracic myelopathy with cord edema at T10-11 level. This area is just barely seen on the lumbar MRI. 2. Probable cervical myelopathy based on symptoms and examination 3. Severe lumbar stenosis primarily at L4 5 level without definite evidence of cauda equina syndrome 4. Diabetes 5. Probable peripheral neuropathy 6. Hypertension Plan: Findings were discussed with emergency room physician, anesthesiologist. An attempt was made to obtain an MRI of the cervical and thoracic spine, and the patient is very claustrophobic and unable to proceed with the study. Due to limited anesthesia and operating room availability, and considering the patient's history of relatively stable deficit over the past week, it is felt most prudent to proceed with MRI under anesthesia and surgical intervention as indicated in the a.m. I had a long discussion with the patient regarding the current findings. We will attempt to proceed with a CT scan of the cervical and thoracic and lumbar spine this evening. He understands that along with a thoracic spine decompression, it is possible that he has cervical stenosis which will also likely have to be addressed. Although the lumbar stenosis is significant, it is not felt to be causing his immediate deficit. He also has very poor skin coverage over his previous thoracic incision, with apparent wires underneath the skin which are nearly eroding through the skin surface. He will likely need a revision of this area in the future, but this is again not likely source of his current deficit. Nicho Briceno MD Aug 17, 2016 20:41
[2016-08-17] MEDS: AMITRIPTYLINE HCL 50 MG TAB PO SCH (21:00)
[2016-08-17] MEDS: SODIUM CHLORIDE 0.9% FLUSH 5 ML FLUSH FLUSH SCH (21:00)
[2016-08-17] MEDS: INSULIN DETEMIR 100 UNITS/ML VIAL SQ SCH (21:03)
[2016-08-17] MEDS: TAMSULOSIN HCL 0.4 MG CAP PO SCH (21:10)
[2016-08-17] MEDS: PRAVASTATIN SOD 80 MG TAB PO SCH (21:11)
[2016-08-17] MEDS: DEXAMETHASONE SOD PHOS 4 MG/ML VIAL IV PUSH SCH (21:27)
[2016-08-17 21:52] LABS: APTT (PATIENT) 25.9 SEC (24.3-30.1); PROTHROMBIN TIME - PATIENT 11.1 SEC (9.8-11.6)
[2016-08-18] VITALS (7 sets, daily range): BP systolic 126–148; BP diastolic 61–82; PULSE 72–79; RESP 14–20; TEMP 97.1–98.7; O2SAT 2–98
--- NOTE | 2016-08-18 00:08 | RADRPT ---
EXAM DATE/TIME: 08/17/2016 23:42 [facility] COMPARISON: CT BRAIN W/O CONTRAST, August 17, 2016, 12:51. INDICATIONS : Myelopathy. RADIATION DOSE: 34.35 CTDIvol (mGy) MEDICAL HISTORY : Cardiovascular disease. Hypertension. Diabetes mellitus type 2. SURGICAL HISTORY : None. ENCOUNTER: Initial ACUITY: 1 day PAIN SCALE: 3/10 LOCATION: neck TECHNIQUE: Volumetric scanning of the cervical spine was performed. Multiplanar reconstructions in the sagittal, coronal and oblique axial planes were performed. Using automated exposure control and adjustment o f the mA and/or kV according to patient size, radiation dose was kept as low as reasonably achievable to obtain optimal diagnostic quality images. FINDINGS: There is normal alignment. Severe disc space narrowing at C3-4, C4-5 and C7-T1 noted. Multilevel oste ophytosis. There is previous intervertebral fusion at C5-6 and C6-7 and extensive posterior spinal in strumentation extending from C2 posterior elements through T3 with postlaminectomy changes throughout the cervical spine. There is streak artifact from the spinal fixation hardware. C2-C3: The bony spinal canal is normal in size. No evidence of disc bulge or herniation. The neural forami na are bilaterally patent. C3-C4: Mild bilateral foraminal narrowing secondary to uncovertebral hypertrophy and posterior osteophytic r idging. C4-C5: Mild bilateral foraminal narrowing secondary to facet and uncovertebral hypertrophy. C5-C6: Mild bilateral foraminal narrowing secondary to facet and uncovertebral hypertrophy. C6-C7: The bony spinal canal is normal in size. No evidence of disc bulge or herniation. The neural forami na are bilaterally patent. C7-T1: The bony spinal canal is normal in size. No evidence of disc bulge or herniation. The neural forami na are bilaterally patent. CONCLUSION: Extensive postsurgical changes are seen without definite canal stenosis. Multilevel foraminal stenosi s and degenerative disc disease. Eric Miller MD on August 18, 2016 at 0:03 Board Certified Radiologist. This report was verified electronically.
--- NOTE | 2016-08-18 00:21 | RADRPT ---
EXAM DATE/TIME: 08/17/2016 23:44 [facility] COMPARISON: MRI LUMBAR SPINE W/O CONTRAST, August 17, 2016, 13:42. INDICATIONS : Myelopathy. RADIATION DOSE: 35.86 CTDIvol (mGy) ; Combined studies - Thoracic Spine/Lumbar Spine MEDICAL HISTORY : Hypertension. Cardiovascular disease Diabetes mellitus type 2. SURGICAL HISTORY : None. ENCOUNTER: Initial ACUITY: 1 day PAIN SCALE: 3/10 LOCATION: lumbar TECHNIQUE: Volumetric scanning of the lumbar spine was performed. Multiplanar reconstructions in the sagittal, coronal and oblique axial planes were performed. Using automated exposure control and adjustment of the mA and/or kV according to patient size, radiation dose was kept as low as reasonably achievable t o obtain optimal diagnostic quality images. FINDINGS: There is severe multilevel degenerative disc disease throughout all levels of the lumbar spine with s evere disc space narrowing, discogenic endplate sclerosis and vacuum disc phenomenon. Multilevel oste ophyte formation is seen. Extensive atherosclerotic calcifications of the aorta and iliac vessels are noted. T12-L1: The thecal sac has a normal diameter. No evidence of disc bulge or protrusion. The neural foramina are patent bilaterally. L1-L2: Severe canal stenosis secondary to a diffuse disc osteophyte complex. Mild facet and ligamentum flavu m hypertrophy. L2-L3: Mild canal narrowing suspected secondary to diffuse disc osteophyte complex and mild facet and ligame ntum flavum hypertrophy. L3-L4: Moderate canal narrowing secondary to diffuse disc osteophyte complex. Moderate facet and ligamentum flavum hypertrophy. There is a prominent right lateral osteophyte with mass effect on the L3 exiting nerve. L4-L5: Severe canal stenosis secondary to diffuse disc osteophyte complex and this is eccentric to the right foraminal region. Moderate facet and ligamentum flavum hypertrophy. Severe bilateral foraminal narro wing. L5-S1: Mild diffuse disc osteophyte complex with severe bilateral foraminal narrowing. No canal stenosis. CONCLUSION: Severe degenerative changes are noted as above. Eric Miller MD on August 18, 2016 at 0:17 Board Certified Radiologist. This report was verified electronically.
--- NOTE | 2016-08-18 00:47 | RADRPT ---
EXAM DATE/TIME: 08/17/2016 23:44 [facility] COMPARISON: CT CERVICAL SPINE W/O CONTRAST, August 17, 2016, 23:42. INDICATIONS : Myelopathy. RADIATION DOSE: 35.86 CTDIvol (mGy) ; Combined studies - Thoracic Spine/Lumbar Spine MEDICAL HISTORY : Hypertension. Cardiovascular disease Diabetes mellitus type 2. SURGICAL HISTORY : None. ENCOUNTER: Initial ACUITY: 1 day PAIN SCALE: 3/10 LOCATION: thoracic TECHNIQUE: Volumetric scanning of the thoracic spine was performed. Multiplanar reconstructions in the sagittal , coronal and oblique axial planes were performed. Using automated exposure control and adjustment o f the mA and/or kV according to patient size, radiation dose was kept as low as reasonably achievable to obtain optimal diagnostic quality images. FINDINGS: The vertebral bodies of the thoracic spine are in normal alignment without evidence of subluxation. Vertebral body height is maintained. No fractures are seen. There is posterior durga and transpedicula r screw fixation of the cervical spine extending inferiorly to T3. Scattered Schmorl nodes and modera te to severe disc space narrowing of the thoracic spine are noted. There is a superior endplate compr ession deformity identified with patchy sclerosis seen at T7 consistent with a subacute nature. There is slight loss of vertebral body height. Multilevel osteophyte formation is noted. T1-T2: NO CANAL OR FORAMINAL STENOSIS. T2-T3: The thecal sac has a normal diameter. No evidence of disc bulge or protrusion. T3-T4: There is a left central osteophyte identified which effaces the ventral thecal sac. Mild left foramin al narrowing is suspected. T4-T5: The thecal sac has a normal diameter. No evidence of disc bulge or protrusion. T5-T6: The thecal sac has a normal diameter. No evidence of disc bulge or protrusion. T6-T7: Tiny central disc protrusion without significant canal stenosis. T7-T8: The thecal sac has a normal diameter. No evidence of disc bulge or protrusion. T8-T9: The thecal sac has a normal diameter. No evidence of disc bulge or protrusion. T9-T10: There is a diffuse disc osteophyte complex with severe canal stenosis identified. Severe bilateral fo raminal narrowing is suspected. T10-T11: SEVERE SPINAL STENOSIS SECONDARY TO A DIFFUSE DISC OSTEOPHYTE COMPLEX AND FACET ARTHROPATHY WITH KB RE BILATERAL FORAMINAL NARROWING. T11-T12: The thecal sac has a normal diameter. No evidence of disc bulge or protrusion. T12-L1: The thecal sac has a normal diameter. No evidence of disc bulge or protrusion. CONCLUSION: Severe degenerative changes and subacute appearing T7 compression fracture with slight loss of verteb ral body height along the superior endplate. Patchy reactive sclerosis. Multilevel canal and foramina l stenoses. Eric Miller MD on August 18, 2016 at 0:41 Board Certified Radiologist. This report was verified electronically.
[2016-08-18] MEDS: SODIUM CHLOR 0.9% 1000 ML INJ 1,000 ML IV SCH (01:47)
[2016-08-18] MEDS: MORPHINE SULFATE 4 MG/ML INJ IV PRN (03:09)
[2016-08-18 04:48] LABS: ALT (GPT) 55 U/L (12-78); ANION GAP 9 MEQ/L (5-15); AST (GOT) 44 U/L (15-37); BICARBONATE 26.8 MEQ/L (21.0-32.0); BLOOD UREA NITROGEN 18 MG/DL (7-18); CHLORIDE 102 MEQ/L (98-107); GLOMERULAR FILTRATION RATE 103 ML/MIN (>89); POTASSIUM 4.6 MEQ/L (3.5-5.1); SODIUM (NA) 138 MEQ/L (136-145)
[2016-08-18 04:51] LABS: ALKALINE PHOSPHATASE 74 U/L (45-117); TOTAL BILIRUBIN ADULT 0.6 MG/DL (0.2-1.0)
[2016-08-18] MEDS ORDERED: KETAMINE HCL 500 MG/5 ML VIAL ONE (07:12)
[2016-08-18] MEDS ORDERED: ACETAMINOPHEN 1000 MG/100 ML VIAL IV ONE (07:12)
[2016-08-18] MEDS ORDERED: ARTIFICIAL TEARS OPTH OINT 3.5 APPLIC/3.5 GM TUBO ONE (07:17)
[2016-08-18] MEDS ORDERED: PROPOFOL 500 MG/50 ML INJ 50 ML ONE (07:17)
[2016-08-18] MEDS ORDERED: LIDOCAINE 1%/EPINEPHrine 1:100,000 SOLN 20 ML VIAL ONE (07:38)
[2016-08-18] MEDS ORDERED: GELFOAM SIZE 100 ONE (07:38)
[2016-08-18] MEDS ORDERED: GENTAMICIN SULFATE 80 MG/2 ML VIAL ONE (07:38)
[2016-08-18] MEDS ORDERED: THROMBIN (TOPICAL) 5,000 UNIT VIAL ONE (07:38)
[2016-08-18] MEDS ORDERED: CLINDAMYCIN PHOS 600 MG/4 ML VIAL ONE (08:38)
[2016-08-18] MEDS ORDERED: ceFAZolin INJ 1,000 MG VIAL IV ONE (10:10)
--- NOTE | 2016-08-18 10:13 | RADRPT ---
Caution: Report not yet finalized and possibly incomplete! [facility] COMPARISON: CT THORACIC SPINE W/O CONTRAST, August 17, 2016, 23:44. INDICATIONS : <<Pain.>> MEDICAL HISTORY : <<Diabetes Mellitus type 2; Carcinoma prostate.>> SURGICAL HISTORY : <<Total knee replacement, left>> ENCOUNTER: <<Initial>> ACUITY: <<1 Week>> PAIN SCORE: <<10/10>> LOCATION: <<Upper back region.>> TECHNIQUE: Multiplanar multisequence MRI of the thoracic spine was performed. FINDINGS: The sagittal T1, T2 and inversion recovery images show severe multi-level degenerative disc disease m ost prominent from T9-T10 inferiorly. Prominent anterior spur is seen at the T11-T12 level. There i s diminished signal intensity in both the T1, T2 and inversion recovery sequence along the superior e ndplate of T7. There is also some sclerosis identified in this vertebral body on the prior CT charac teristic of a chronic compression type fracture. Posterior fixation is identified at T1-T2 and T2-T3 . Encroachment on the spinal canal is seen from a prominent disc anteriorly at T9-T10 and a combinat ion of a prominent disc and posterior element hypertrophy at T10-T11. The latter does result in alyssa re central spinal stenosis and cord edema. There are atelectatic changes identified in the dependent portion of both rajat-thoraces. T1-T2: Posterior fixation. The spinal canal is patent. T2-T3: Posterior fixation. The spinal canal is patent. T3-T4: The thecal sac has a normal diameter. No evidence of disc bulge or protrusion. T4-T5: The thecal sac has a normal diameter. No evidence of disc bulge or protrusion. T5-T6: The thecal sac has a normal diameter. No evidence of disc bulge or protrusion. T6-T7: The thecal sac has a normal diameter. No evidence of disc bulge or protrusion. T7-T8: The thecal sac has a normal diameter. No evidence of disc bulge or protrusion. T8-T9: The thecal sac has a normal diameter. No evidence of disc bulge or protrusion. T9-T10: There is a diffuse disc bulge with moderate central spinal stenosis but no obvious cord compromise. Again, there is bibasilar atelectatic changes/effusions. T10-T11: Combination of diffuse disc bulge and posterior element hypertrophy resulting in severe central spinal stenosis and cord compromise. T11-T12: The thecal sac has a normal diameter. No evidence of disc bulge or protrusion. T12-L1: The thecal sac has a normal diameter. No evidence of disc bulge or protrusion. CONCLUSION: 1. Multi-level degenerative disc disease most severe from T9-T10 inferiorly. 2. There is moderate central spinal stenosis at T9-T10 due to a diffuse disc bulge with no obvious c ord compromise. 3. However, at T10-T11, diffuse disc bulge and posterior element hypertrophy results in severe centra l spinal stenosis with cord compression and edema. 4. Previous surgery with posterior fixation at T1-T2 and T2-T3. 5. Probable chronic compression fracture through T7. The spinal canal is adequate at this and all re maining levels, however. Hakeem Amaro MD on August 18, 2016 at 9:39
[2016-08-18 10:40] LABS: HEMOGLOBIN A1a 0.9 %; HEMOGLOBIN A1b 2.1 %; HEMOGLOBIN Ao 83.6 %; HEMOGLOBIN LA1C 2.1 %
--- NOTE | 2016-08-18 11:04 | RADRPT ---
EXAM DATE/TIME: 08/18/2016 08:18 [facility] COMPARISON: CT CERVICAL SPINE W/O CONTRAST, August 17, 2016, 23:42. INDICATIONS: Pain. MEDICAL HISTORY: Diabetes mellitus type 2. Carcinoma, prostate. SURGICAL HISTORY: Total knee replacement, left. ENCOUNTER: Initial ACUITY: 1 week PAIN SCORE: 10/10 LOCATION: Bilateral neck region. TECHNIQUE: Multiplanar, multisequence MRI examination of the cervical spine was performed. FINDINGS: The sagittal T1, T2 and inversion recovery images show straightening and slightly reversal of the nor mal lordotic curvature. There is extensive posterior fixation throughout the cervical spine with los s of disc height at every cervical level. There is a minimal grade I anterolisthesis of C5 on 6 and C7 on T1 with a minimal grade I retrolisthesis of C6 and C7. Susceptibility artifact obliterates jeffry e of the anatomic detail from C5 through C7 but the upper cord appears to be normal in signal intensi ty without cord compromise. Vertebral body heights are maintained without fracture. Detailed axial images as follows: C2-C3: Posterior fixation. Spinal canal and neural foramina are patent. C3-C4: Posterior fixation with decompressive laminectomy. Spinal canal, neural foramina are adequate. C4-C5: Decompressive laminectomy with posteriori fixation. Spinal canal and neural foramina are adequate. C5-C6: Posterior fixation. Anatomic detail are quite limited. Spinal canal appears to be adequate but it i s difficult to determine patency of neural foramina. C6-C7: Again, anatomic detail is limited. Decompressive laminectomy, posterior fixation. Spinal canal I be lieve is adequate but the neural foramina are adequate to evaluate. C7-T1: Limited anatomic detail but the spinal canal and neural foramina appear to be adequate. CONCLUSION: 1. Extensive posterior fixation with bilateral transpedicular fixation throughout the cervical spine . 2. Straightening of the normal lordotic curvature with minimal grade I anterolisthesis of C5 on 6 an d C7 on T1 and minimal grade I retrolisthesis of C6 on C7. 3. I believe the spinal canal is adequate throughout the cervical spine but the anatomic detail is q uite limited due to susceptibility artifact from C5 through C7. 4. Similarly, the integrity of the neural foramina at C5 -6 and C6-7 are somewhat difficult to deter mine. I believe the neural foramina are adequate at all remaining levels, however. 5. Not mentioned above, there is a 1.6 cm cyst in the right lobe of the thyroid. Hakeem Amaro MD on August 18, 2016 at 9:51 Board Certified Radiologist. This report was verified electronically.
[2016-08-18] MEDS ORDERED: PROPOFOL 200 MG/20 ML AMP IV ONE (12:00)
[2016-08-18] MEDS ORDERED: ePHEDrine/NS 25 MG/5 ML SYR IV ONE (12:00)
[2016-08-18] MEDS ORDERED: PHENYLEPH/NS 1000 MCG/10 ML SYR IV ONE (12:00)
[2016-08-18] MEDS ORDERED: NORMOSOL R INJ 2,000 ML IV ONE (12:00)
[2016-08-18] MEDS ORDERED: LACTATED RINGER'S 1000 ML INJ 1,000 ML IV ONE (12:00)
[2016-08-18] MEDS ORDERED: HYDROmorphone HCL PF 2 MG/ML VIAL ONE (12:05)
[2016-08-18] MEDS ORDERED: fentaNYL CITRATE 250 MCG/5 ML AMP ONE (12:05)
[2016-08-18] MEDS ORDERED: MIDAZOLAM HCL 2 MG/2 ML VIAL ONE (12:06)
[2016-08-18] MEDS: DEXAMETHASONE SOD PHOS 4 MG/ML VIAL IV PUSH SCH (14:00)
[2016-08-18] MEDS ORDERED: DO NOT ADM ANY ANTICOAGULANT DRUGS XX PRN (14:20)
[2016-08-18] MEDS ORDERED: *morphine SULFATE 8 MG/ML PERIprocedure ONLY ONE ×3 (15:04→15:51)
--- NOTE | 2016-08-18 15:07 | RADRPT ---
EXAM DATE/TIME: 08/18/2016 10:43 [facility] COMPARISON: MRI THORACIC SPINE W/O CONTRAST, August 18, 2016, 8:18. INDICATIONS : T9-11 Laminectomy. MEDICAL HISTORY : Diabetes mellitus type II. Chronic obstructive pulmonary disease. Hypertension. CHF. Smoker. SURGICAL HISTORY : None. ENCOUNTER: Subsequent ACUITY: 2 days PAIN SCORE: Non-responsive. LOCATION: Thoracic spine. FINDINGS: A single lateral view of the thoracic spine was performed. Due to the limited field of view, the exac t level is difficult to determine. However, based on the prominent anterior spur identified at T11-[address] and MR, I believe a metallic marker projects over the T11 vertebral body with metall ic markers at T9-10 and T10-11. Retractor is identified posterior to the T10-11 disc interspace. CONCLUSION: Localization as above. Levels were determined by the prominent anterior spur at T11-12. Hakeem Amaro MD on August 18, 2016 at 15:03 Board Certified Radiologist. This report was verified electronically.
[2016-08-18] MEDS ORDERED: *hydrOXYzine 25 MG VIAL PERIprocedural Use ONLY IM ONE (15:10)
--- NOTE | 2016-08-18 15:26 | HHI.FPPN ---
Subjective Remarks Pt seen and examined in PACU. Pt unable to provide information or answer questions. Pt receiving pain medication. (Emeka Galeas MD R1) Objective Vitals Vital Signs Date Time Temp Pulse Resp B/P Pulse Ox O2 Delivery O2 Flow Rate FiO2 08/18/16 15:15 76 10 145/64 97 08/18/16 15:00 70 12 150/62 98 08/18/16 14:45 66 12 138/57 99 08/18/16 14:30 68 12 144/60 99 Nasal Cannula 3 08/18/16 14:15 96.7 80 13 100 Nasal Cannula 3 167/72 08/18/16 05:40 72 20 148/82 97 Nasal Cannula 2 08/18/16 03:59 16 08/18/16 03:36 79 20 133/66 98 Nasal Cannula 08/18/16 00:21 72 20 133/61 96 Nasal Cannula 2 08/17/16 22:40 73 20 127/79 100 Nasal Cannula 08/17/16 19:43 65 20 126/69 96 Nasal Cannula 2 08/17/16 19:40 98 08/17/16 18:00 81 16 122/57 96 Room Air 08/17/16 16:30 78 18 141/74 97 Room Air 08/17/16 15:52 97 21 I/O 08/17/16 08/17/16 08/17/16 08/18/16 08/18/16 08/18/16 07:00 15:00 23:00 07:00 15:00 23:00 Intake Total 1600 ml Output Total 500 ml 1050 ml 1500 ml Balance -500 ml -1050 ml 100 ml Intake Other 1600 ml Output Urine Total 500 ml 1050 ml Estimated Blood Loss 400 ml Other 1100 ml # Voids 0 0 (Emeka Galeas MD R1) Result Diagram: 08/17/16 1230 08/18/16 0350 Objective Remarks CONSTITUTIONAL/GEN: normally nourished, laying in bed LUNGS: diminished lung sounds, occasional wheezes CARDIOVASCULAR: RR without murmur or gallop. No significant edema. GI/ABD: soft without masses, without organomegaly. (Emeka Galeas MD R1) A/P Assessment and Plan 70yo male with history significant for diabetes. Admitted due to spinal stenosis causing frequent falls. Discharge Planning Pending neurosurgery recs (Emeka Galeas MD R1) Attending Attestation Pt. seen in the recovery room, complaining of back pain. He was more conversant and responded appropriately to questions. Patient seen and examined. Case reviewed and discussed with the resident team. Agree with plan of care as discussed with me and documented in the resident note. (Brenda Peres MD) Problem List: (1) Spinal stenosis of lumbar region Status: Acute Plan: Frequent falls 1 week with no associated bowel or bladder incontinence/ retention. Endorses lower back pain that radiates down to bilateral legs. No preceding events. -CBC, BMP, UA unremarkable -UDS positive for benzos, unsure if patient had already received Ativan prior to UDS -neuro checks -monitor I&O Neurosurgery consulted: appreciate recommendations * POD#0 from surgery * MRI of Cervical and thoracic spine pending Imaging: * Thoracic MRI: pending * Cervical MRI: pending * Lumbar MRI: Severe central canal stenosis at the L4-L5 level secondary to disc bulge and degenerative disease. Moderate to severe central canal stenosis at the L3-L4 level secondary to disc bulge and degenerative changes. Mild central canal stenosis at the L1 and L2-3 levels. Diffuse moderate to severe degenerative disc disease. Narrowing of the neuroforamen bilaterally at the L3- L4 and L4 to 5 levels. * Head CT: No acute intracranial disease Medications: * Decadron 10 mg 1 (08/17) * Decadron 4 mg q8 * HOLD nicotine patch (2) Frequent falls Status: Acute Plan: See plan above (3) DM (diabetes mellitus) Status: Chronic Plan: Reports use of 16 units of Lantus. -Levemir 5 units BID + sliding scale -Hold metformin -Continue amitriptyline but at a decreased dose 50mg HS (4) Nutrition, metabolism, and development symptoms Status: Acute Plan: Diet: NPO, can resume diet after resolved from anesthesia Fluids: NS at 100 Electrolytes: unremarkable DVT PPX: SCDs GI PPX: Protonix Chronic Conditions: * HTN: Lisinopril 10mg * HLD: continue home pravastatin 80mg daily * Depression: continue home Celexa but at decreased dose, due to multiple antidepressant and pt unsure of medications, will hold on Wellbutrin * BPH: continue home tamsulosin (Emeka Galeas MD R1) Problem Qualifiers (1) DM (diabetes mellitus): Emeka Galeas MD R1 Aug 18, 2016 15:26 Brenda Peres MD Aug 18, 2016 16:05
--- NOTE | 2016-08-18 15:36 | RADRPT ---
EXAM DATE/TIME: 08/18/2016 14:51 [facility] COMPARISON: CT CERVICAL SPINE W/O CONTRAST, August 17, 2016, 23:42. SPINE THORACIC LATERAL ONLY, August 18, 2016, 10:43. INDICATIONS : Central line placement. MEDICAL HISTORY : Unobtainable. SURGICAL HISTORY : Unobtainable. ENCOUNTER: Initial ACUITY: 1 day PAIN SCORE: Non-responsive. LOCATION: Bilateral chest FINDINGS: There is a central venous catheter which enters via the left subclavian the catheter tip is at the ju nction of the subclavian vein and SVC. There is no pneumothorax. There are mild areas of platelike atelectasis at the left lung base. The lungs otherwise demonstrate fairly diffuse chronic interstitial changes. Heart is mildly enlarged. CONCLUSION: 1. Central venous catheter appears in satisfactory position as above. Hadley Serrano MD on August 18, 2016 at 15:33 Board Certified Radiologist. This report was verified electronically.
[2016-08-18] MEDS: INSULIN ASPART SUPPLEMENTAL SCALE SQ SCH ×2 (16:00→22:11)
[2016-08-18] MEDS ORDERED: *HYDROmorphone PF 1 MG VIAL PERIprocedural Use ONLY ONE (16:35)
[2016-08-18] MEDS ORDERED: NALOXONE HCL 0.4 MG/ML AMP IV PRN (16:45)
[2016-08-18] MEDS ORDERED: ACETAMINOPHEN/HYDROcodone 325 MG/5 MG TAB PO PRN (16:45)
[2016-08-18] MEDS ORDERED: HYDROmorphone HCL PF 1 MG/ML VIAL IV PRN (16:45)
[2016-08-18] MEDS ORDERED: SODIUM CHLORIDE 0.9% FLUSH 5 ML FLUSH IVF PRN (16:45)
[2016-08-18] MEDS ORDERED: MORPHINE SULFATE 4 MG/ML INJ IV PRN (16:45)
--- NOTE | 2016-08-18 16:49 | PD.OP ---
Operative Report Date of Surgery: Aug 18, 2016 Preoperative Diagnosis: (1) Thoracic myelopathy 1. T9 10, T10-11 stenosis 2. Thoracic myelopathy Postoperative Diagnosis: (1) Thoracic myelopathy 1. T9 10, T10-11 stenosis 2. Thoracic myelopathy Procedure: T9-10 and T10-11 decompressive semi-hemilaminectomy Anesthesia: Gen. endotracheal Surgeon: Nicho Briceno Sheet Taker(s): Hadley Pryor Operation and Findings: Procedure in detail: The patient was brought into the operating room and general endotracheal anesthesia induced without difficulty. TACHO hose and sequential compression devices were placed. The Perez catheter was placed. Lines were established by anesthesia. Leads for intraoperative neuro monitoring were placed and a baseline study obtained. The patient was positioned on the concentric Marcus table with the side bolsters and all extremities appropriately padded. Appropriate time-out procedure was performed with all personnel present and in agreement. The T9-10 and T10-11 levels were verified with intraoperative AP and lateral C- arm and triple checked. These images were carefully compared against the preoperative CT and MRI of the thoracic spine for the appropriate level of decompression. 1% Xylocaine with epinephrine was used for local infiltration over the incision site which was made at the midline T9-T11 level . The incision was carried sharply down to the lumbodorsal fascia which was incised adjacent to the spinous processes. Anthony elevator was used for subperiosteal elevation of paraspinous musculature and fascia away from the lamina and spinous process. The deep self-retaining retractor was placed. The appropriate levels were verified with intraoperative C-arm. Microscope was moved into place and used for the remainder of the procedure including the closure. At sequentially the T9 10 and then T10 11 level starting on the left side and then working across the midline to the opposite side, the TPS drill with a 5 mm bone bur followed by the 4 mm mark bur was used to remove the inferior two thirds of the more cephalad lamina and the superior aspect of the more caudal lamina along with a moderate amount of the bilateral medial facet, taking care not to disrupt the integrity of the facet or pars intra-articularis. The hypertrophied ligamentum flavum at each level was elevated away from the thecal sac with the thin ligament dissector and resected with the 15 blade knife and the Kerrison rongeur out to the level of the deep lateral recess to completely decompress the thecal sac and exiting nerve roots. The spinal canal and thecal sac and nerve roots appeared well decompressed at the end of the procedure. No spinal fluid leakage was encountered. The disc and annulus at each level was visualized to make sure that there was no significant disc displacement or herniation. A mild to moderate posterior osteophytic disc complex was found at each level which was heavily calcified. This did not appear to cause significant compression of the ventral thecal sac at either level. Bleeding was carefully controlled with the bipolar forceps. There is still a mild amount of diffuse venous bleeding from the epidural space at the time of closure. A 10 mm flat fluted drain was left in place at the operative site and brought out through an incision in the mid lumbar region and secured to the skin with nylon suture and attached to a bulb suction. The closure was performed with 2- 0 Vicryl interrupted for the deep and superficial fascia, with 3-0 Vicryl interrupted subcutaneous closure, and 4-0 Vicryl running subcuticular closure. A dressing of sterile Mastisol, Steri- Strips, and Primapore was placed. The patient was taken to recovery room in stable condition. All counts were correct at the end of the case. Estimated blood loss was 400 cc. No specimen was sent to pathology Intraoperative neuro monitoring remained stable during the procedure Nicho Briceno MD Aug 18, 2016 16:49
[2016-08-18] MEDS: 1/2 NS + KCL 20 MEQ INJ 1,000 ML IV SCH (16:50)
--- NOTE | 2016-08-18 17:32 | RADRPT ---
EXAM DATE/TIME: 08/18/2016 08:18 [facility] COMPARISON: CT THORACIC SPINE W/O CONTRAST, August 17, 2016, 23:44. INDICATIONS : Pain. MEDICAL HISTORY : Diabetes Mellitus type 2; Carcinoma prostate. SURGICAL HISTORY : Total knee replacement, left ENCOUNTER: Initial ACUITY: 1 Week PAIN SCORE: 10/10 LOCATION: Upper back region. TECHNIQUE: Multiplanar multisequence MRI of the thoracic spine was performed. FINDINGS: The sagittal T1, T2 and inversion recovery images show severe multi-level degenerative disc disease m ost prominent from T9-T10 inferiorly. Prominent anterior spur is seen at the T11-T12 level. There i s diminished signal intensity in both the T1, T2 and inversion recovery sequence along the superior e ndplate of T7. There is also some sclerosis identified in this vertebral body on the prior CT charac teristic of a chronic compression type fracture. Posterior fixation is identified at T1-T2 and T2-T3 . Encroachment on the spinal canal is seen from a prominent disc anteriorly at T9-T10 and a combinat ion of a prominent disc and posterior element hypertrophy at T10-T11. The latter does result in alyssa re central spinal stenosis and cord edema. There are atelectatic changes identified in the dependent portion of both rajat-thoraces. T1-T2: Posterior fixation. The spinal canal is patent. T2-T3: Posterior fixation. The spinal canal is patent. T3-T4: The thecal sac has a normal diameter. No evidence of disc bulge or protrusion. T4-T5: The thecal sac has a normal diameter. No evidence of disc bulge or protrusion. T5-T6: The thecal sac has a normal diameter. No evidence of disc bulge or protrusion. T6-T7: The thecal sac has a normal diameter. No evidence of disc bulge or protrusion. T7-T8: The thecal sac has a normal diameter. No evidence of disc bulge or protrusion. T8-T9: The thecal sac has a normal diameter. No evidence of disc bulge or protrusion. T9-T10: There is a diffuse disc bulge with moderate central spinal stenosis but no obvious cord compromise. Again, there is bibasilar atelectatic changes/effusions. T10-T11: Combination of diffuse disc bulge and posterior element hypertrophy resulting in severe central spinal stenosis and cord compromise. T11-T12: The thecal sac has a normal diameter. No evidence of disc bulge or protrusion. T12-L1: The thecal sac has a normal diameter. No evidence of disc bulge or protrusion. CONCLUSION: 1. Multi-level degenerative disc disease most severe from T9-T10 inferiorly. 2. There is moderate central spinal stenosis at T9-T10 due to a diffuse disc bulge with no obvious c ord compromise. 3. However, at T10-T11, diffuse disc bulge and posterior element hypertrophy results in severe centra l spinal stenosis with cord compression and edema. 4. Previous surgery with posterior fixation at T1-T2 and T2-T3. 5. Probable chronic compression fracture through T7. The spinal canal is adequate at this and all re maining levels, however. Hakeem Amaro MD on August 18, 2016 at 9:39 Board Certified Radiologist. This report was verified electronically.
[2016-08-18] MEDS: oxyCODONE/ACETAMINOPHEN 10 MG/325 MG TAB PO PRN (20:18)
[2016-08-18] MEDS ORDERED: oxyCODONE/ACETAMINOPHEN 7.5 MG/325 MG TAB PO PRN (22:00)
[2016-08-18] MEDS: PANTOPRAZOLE SODIUM 40 MG VIAL IV PUSH SCH (22:09)
[2016-08-18] MEDS: SODIUM CHLORIDE 0.9% FLUSH 5 ML FLUSH IVF SCH (22:10)
[2016-08-18] MEDS: PRAVASTATIN SOD 80 MG TAB PO SCH (22:10)
[2016-08-18] MEDS: SODIUM CHLORIDE 0.9% FLUSH 5 ML FLUSH FLUSH SCH (22:10)
[2016-08-18] MEDS: INSULIN DETEMIR 100 UNITS/ML VIAL SQ SCH (22:10)
[2016-08-18] MEDS: AMITRIPTYLINE HCL 50 MG TAB PO SCH (22:10)
[2016-08-18] MEDS: TAMSULOSIN HCL 0.4 MG CAP PO SCH (22:11)
[2016-08-19] VITALS (7 sets, daily range): BP systolic 109–136; BP diastolic 53–69; PULSE 67–78; RESP 16–18; TEMP 97.9–99.3; O2SAT 76–97
[2016-08-19] MEDS: 1/2 NS + KCL 20 MEQ INJ 1,000 ML IV SCH ×3 (02:29→20:56)
[2016-08-19] MEDS: oxyCODONE/ACETAMINOPHEN 10 MG/325 MG TAB PO PRN ×5 (02:30→20:55)
[2016-08-19] MEDS: INSULIN ASPART SUPPLEMENTAL SCALE SQ SCH ×4 (05:47→20:56)
[2016-08-19 06:09] LABS: AUTOMATED NEUTROPHIL # 7.9 TH/MM3 (1.8-7.7); BASOPHIL # 0.1 TH/MM3 (0-0.2); BASOPHIL % 0.6 % (0.0-2.0); HEMATOCRIT 33.1 % (39.0-51.0); HEMO FLAGS DIFF FINAL; LYMPH % 13.8 % (9.0-44.0); LYMPHOCYTE # 1.4 TH/MM3 (1.0-4.8); MEAN CELL VOLUME 76.2 FL (80.0-100.0); MEAN CORPUSCULAR HEMOGLOBIN 26.1 PG (27.0-34.0); MEAN CORPUSCULAR HGB CONC 34.2 % (32.0-36.0); MONO % 7.6 % (0.0-8.0); PLATELET COUNT 221 TH/MM3 (150-450); RED BLOOD COUNT 4.34 MIL/MM3 (4.50-5.90); RED CELL DISTRIBUTION WIDTH 20.9 % (11.6-17.2); WHITE BLOOD COUNT 10.2 TH/MM3 (4.0-11.0)
[2016-08-19 06:34] LABS: BICARBONATE 28.1 MEQ/L (21.0-32.0); POTASSIUM 4.4 MEQ/L (3.5-5.1)
[2016-08-19] MEDS: LISINOPRIL 10 MG TAB PO SCH ×2 (08:16→09:00)
[2016-08-19] MEDS: SODIUM CHLORIDE 0.9% FLUSH 5 ML FLUSH FLUSH SCH (08:16)
[2016-08-19] MEDS: CITALOPRAM HYDROBROMIDE 20 MG TAB PO SCH (08:16)
[2016-08-19] MEDS: INSULIN DETEMIR 100 UNITS/ML VIAL SQ SCH ×2 (08:17→20:56)
[2016-08-19] MEDS: SODIUM CHLORIDE 0.9% FLUSH 5 ML FLUSH IVF SCH ×2 (08:17→20:56)
--- NOTE | 2016-08-19 09:44 | HHI.FPPN ---
Subjective Remarks Pt seen and examined this morning. POD#[address] Briceno. Pt reports pain not controlled this morning and is concerned about returning sensation to his legs. No chest pain, SOB. (Emeka Galeas MD R1) Objective Vitals Vital Signs Date Time Temp Pulse Resp B/P Pulse Ox O2 Delivery O2 Flow Rate FiO2 08/19/16 04:00 98.7 76 16 136/69 94 08/19/16 00:00 99.3 67 16 111/63 95 08/18/16 20:14 96 21 08/18/16 20:10 98.7 79 20 128/66 96 08/18/16 18:41 97.1 74 18 130/67 97 08/18/16 17:27 98.7 73 14 126/68 96 08/18/16 17:03 97.9 73 14 123/57 95 08/18/16 17:00 97.9 76 16 95 123/57 08/18/16 16:30 79 12 135/66 99 08/18/16 16:15 70 12 124/55 98 08/18/16 16:00 79 14 140/71 97 08/18/16 15:45 80 14 130/73 99 08/18/16 15:30 78 12 138/70 99 08/18/16 15:15 76 10 145/64 97 08/18/16 15:00 70 12 150/62 98 08/18/16 14:45 66 12 138/57 99 08/18/16 14:30 68 12 144/60 99 Nasal Cannula 3 08/18/16 14:15 96.7 80 13 100 Nasal Cannula 3 167/72 I/O 08/18/16 08/18/16 08/18/16 08/19/16 08/19/16 08/19/16 07:00 15:00 23:00 07:00 15:00 23:00 Intake Total 1600 ml 240 ml 480 ml Output Total 1050 ml 1500 ml 1235 ml 1030 ml Balance -1050 ml 100 ml -995 ml -550 ml Intake Oral 240 ml 480 ml Other 1600 ml Output Urine Total 1050 ml 1175 ml 1000 ml Drainage Total 60 ml 30 ml Estimated Blood Loss 400 ml Other 1100 ml # Voids 0 1 # Bowel Movements 0 0 (Emeka Galeas MD R1) Result Diagram: 08/19/16 0555 08/19/16 0555 Objective Remarks CONSTITUTIONAL/GEN: normally nourished, sitting up in bed. LUNGS: diminished lung sounds, occasional wheezes CARDIOVASCULAR: RR without murmur or gallop. No significant edema. BACK: Dressing in place on upper back, drain in place, draining serosanguineous fluid GI/ABD: soft without masses, without organomegaly. (Emeka Galeas MD R1) A/P Assessment and Plan 70yo male with history significant for diabetes. Admitted due to spinal stenosis causing frequent falls. Discharge Planning Pending neurosurgery recs (Emeka Galeas MD R1) Attending Attestation Patient seen and examined. Case reviewed and discussed with the resident team. Agree with plan of care as discussed with me and documented in the resident note. (Brenda Peres MD) Problem List: (1) Spinal stenosis of lumbar region Status: Acute Plan: Frequent falls 1 week with no associated bowel or bladder incontinence/ retention. Endorses lower back pain that radiates down to bilateral legs. No preceding events. -CBC, BMP, UA unremarkable -UDS positive for benzos, unsure if patient had already received Ativan prior to UDS -neuro checks -monitor I&O Neurosurgery consulted: appreciate recommendations * POD#1 from decompression and rajat-laminectomy with Dr. Briceno * Drain in place Imaging: * Thoracic MRI: Multi-level DDD. Stenosis at T9-10. T10-11 disc bulge and posterior element hypertrophy with severe central spinal stenosis with cord compression and edema. Chronic compression fracture throught T7 * Cervical MRI: To posterior fixation with bilateral transpedicular fixation throughout cervical spine. Grade 1 anterior listhesis of C5 on 6 and C7 on T1. Indeterminant spinal stenosis. * Lumbar MRI: Severe central canal stenosis at the L4-L5 level secondary to disc bulge and degenerative disease. Moderate to severe central canal stenosis at the L3-L4 level secondary to disc bulge and degenerative changes. Mild central canal stenosis at the L1 and L2-3 levels. Diffuse moderate to severe degenerative disc disease. Narrowing of the neuroforamen bilaterally at the L3- L4 and L4 to 5 levels. * Head CT: No acute intracranial disease Medications: * Decadron 10 mg 1 (08/17) * Decadron 4 mg q8 * Pain control with Percocet and morphine breakthrough * Restart nicotine patch (2) Frequent falls Status: Acute Plan: See plan above (3) DM (diabetes mellitus) Status: Chronic Plan: Reports use of 16 units of Lantus. -Levemir 5 units BID + sliding scale -Hold metformin -Continue amitriptyline but at a decreased dose 50mg HS (4) Nutrition, metabolism, and development symptoms Status: Acute Plan: Diet: Diabetic diet Fluids: NS at 100 Electrolytes: monitor, replace PRN DVT PPX: SCDs GI PPX: Protonix Chronic Conditions: * HTN: Lisinopril 10mg * HLD: continue home pravastatin 80mg daily * Depression: continue home Celexa but at decreased dose, due to multiple antidepressant and pt unsure of medications, will hold on Wellbutrin * BPH: continue home tamsulosin (Emeka Galeas MD R1) Problem Qualifiers (1) DM (diabetes mellitus): Emeka Galeas MD R1 Aug 19, 2016 09:43 Brenda Peres MD Aug 19, 2016 15:39
[2016-08-19] MEDS: NICOTINE 14 MG/24 HR PATCH TD SCH (12:41)
[2016-08-19] MEDS: AMITRIPTYLINE HCL 50 MG TAB PO SCH (20:55)
[2016-08-19] MEDS: PRAVASTATIN SOD 80 MG TAB PO SCH (20:55)
[2016-08-19] MEDS: TAMSULOSIN HCL 0.4 MG CAP PO SCH (20:55)
[2016-08-19] MEDS: PANTOPRAZOLE SODIUM 40 MG VIAL IV PUSH SCH (20:55)
--- NOTE | 2016-08-19 21:45 | HHI.NSPN ---
History Chief Complaint: back pain Interval History 70 male presents with approximately 3 weeks of progressive gait difficulty, multiple falls in the past week. Initial imaging studies with severe T10-11 greater than T9 10 canal stenosis with severe cord compression and edema. Moderately severe L4 5 stenosis 08/18/2016: T9-11 decompressive laminectomy 08/19/16: Postoperative exam stable compared to preoperative assessment. Exam Results Vital Signs Date Time Temp Pulse Resp B/P Pulse Ox O2 Delivery O2 Flow Rate FiO2 08/19/16 19:27 98.1 76 18 109/63 76 08/19/16 12:43 21 08/18/16 14:30 Nasal Cannula 3 Intake and Output 08/18/16 08/18/16 08/19/16 08:00 16:00 00:00 Intake Total 1600 ml 240 ml Output Total 1050 ml 2675 ml 60 ml Balance -1050 ml -1075 ml 180 ml Physical Examination Awake and alert Mild agitation Speech clear Follow simple commands well Sensation mildly impaired light touch upper extremities-stable since previous neck surgery according to patient. Delroy's response absent bilateral Sensation mildly diminished primarily distal left greater than right lower extremity to light touch. Strength is mostly 4-5/5 throughout the lower extremities. Diminished lower extremity coordination stable versus preoperative. Dressing is dry and intact. Moderate drain output. Lab, Micro, Other Results Laboratory Tests Test 08/19/16 05:55 White Blood Count 10.2 TH/MM3 Red Blood Count 4.34 MIL/MM3 Hemoglobin 11.3 GM/DL Hematocrit 33.1 % Mean Corpuscular Volume 76.2 FL Mean Corpuscular Hemoglobin 26.1 PG Mean Corpuscular Hemoglobin 34.2 % Concent Red Cell Distribution Width 20.9 % Platelet Count 221 TH/MM3 Mean Platelet Volume 7.2 FL Neutrophils (%) (Auto) 78.0 % Lymphocytes (%) (Auto) 13.8 % Monocytes (%) (Auto) 7.6 % Eosinophils (%) (Auto) 0.0 % Basophils (%) (Auto) 0.6 % Neutrophils # (Auto) 7.9 TH/MM3 Lymphocytes # (Auto) 1.4 TH/MM3 Monocytes # (Auto) 0.8 TH/MM3 Eosinophils # (Auto) 0.0 TH/MM3 Basophils # (Auto) 0.1 TH/MM3 CBC Comment DIFF FINAL Differential Comment Sodium Level 138 MEQ/L Potassium Level 4.4 MEQ/L Chloride Level 103 MEQ/L Carbon Dioxide Level 28.1 MEQ/L Anion Gap 7 MEQ/L Blood Urea Nitrogen 15 MG/DL Creatinine 0.67 MG/DL Estimat Glomerular Filtration 118 ML/MIN Rate Random Glucose 185 MG/DL Calcium Level 8.2 MG/DL Medical Decision Making Impression and Plan Impression: 1. Stable neurologic exam status post T9-11 laminectomy decompression of spinal cord. 2. Diabetes 3. Hypertension Plan: Continue physical therapy Medications changed Would like to obtain postoperative MRI to ensure that the spinal cord is well decompressed. We will discuss with anesthesia since the patient is extremely claustrophobic. Medicine service is following to assist with management of hypertension, diabetes and other medical issues. He remains on insulin sliding scale Nicho Briceno MD Aug 19, 2016 21:45
[2016-08-20] VITALS: BP 100/46; PULSE 67; RESP 16; TEMP 98.9; O2SAT 100
[2016-08-20] MEDS: oxyCODONE/ACETAMINOPHEN 7.5 MG/325 MG TAB PO PRN ×8 (03:04→23:44)
[2016-08-20 04:00] VITALS: BP 125/60; PULSE 105; RESP 17; TEMP 98; O2SAT 95
[2016-08-20] MEDS: INSULIN ASPART SUPPLEMENTAL SCALE SQ SCH ×4 (06:16→20:42)
[2016-08-20 06:31] LABS: AUTOMATED NEUTROPHIL # 7.9 TH/MM3 (1.8-7.7); BASOPHIL # 0.1 TH/MM3 (0-0.2); BASOPHIL % 0.9 % (0.0-2.0); EOSINOPHIL # 0.2 TH/MM3 (0-0.4); EOSINOPHIL % 1.5 % (0.0-4.0); HEMATOCRIT 34.8 % (39.0-51.0); LYMPH % 19.7 % (9.0-44.0); LYMPHOCYTE # 2.3 TH/MM3 (1.0-4.8); MEAN CELL VOLUME 76.8 FL (80.0-100.0); MEAN CORPUSCULAR HEMOGLOBIN 26.2 PG (27.0-34.0); MEAN CORPUSCULAR HGB CONC 34.1 % (32.0-36.0); MONO % 9.4 % (0.0-8.0); NEUT % 68.5 % (16.0-70.0); PLATELET COUNT 198 TH/MM3 (150-450); RED BLOOD COUNT 4.54 MIL/MM3 (4.50-5.90); RED CELL DISTRIBUTION WIDTH 20.7 % (11.6-17.2); WHITE BLOOD COUNT 11.5 TH/MM3 (4.0-11.0)
[2016-08-20 07:25] LABS: BICARBONATE 29.3 MEQ/L (21.0-32.0)
[2016-08-20 07:39] LABS: HEMO FLAGS AUTO DIFF; PLATELET ESTIMATE SMEAR NORMAL (NORMAL); PLATELET MORPHOLOGY CLUMPED (NORMAL); SCAN/DIFF AUTO DIFF CONFIRMED
[2016-08-20 08:00] VITALS: BP 143/68; PULSE 84; RESP 19; TEMP 97.7; O2SAT 95
[2016-08-20] MEDS: CITALOPRAM HYDROBROMIDE 20 MG TAB PO SCH ×2 (08:25→09:00)
[2016-08-20] MEDS: NICOTINE 14 MG/24 HR PATCH TD SCH (08:25)
[2016-08-20] MEDS: SODIUM CHLORIDE 0.9% FLUSH 5 ML FLUSH IVF SCH ×2 (08:27→20:42)
[2016-08-20] MEDS: INSULIN DETEMIR 100 UNITS/ML VIAL SQ SCH ×2 (08:27→20:42)
[2016-08-20] MEDS ORDERED: SOD PHOSPHATE/SOD BIPHOSPHATE (ADULT) ENEMA 133ML PR PRN (08:30)
[2016-08-20] MEDS: LISINOPRIL 10 MG TAB PO SCH (09:00)
[2016-08-20] MEDS: DOCUSATE SODIUM 50 MG/SENNA 8.6 MG TAB PO SCH ×2 (09:41→20:41)
--- NOTE | 2016-08-20 09:43 | HHI.FPPN ---
Subjective Remarks No acute events overnight. Vital signs unremarkable. This morning patient reports that he is leaving today no matter what. He is requesting to get his MRI done prior to him leaving. Willing to sign AMA papers which was thoroughly discussed with patient. Counseled about risk of leaving AMA. Patient does not want to go to rehabilitation facility and states that he has assistance at home through a friend. Denies any pain and tolerating a diet without issue. (Rajni Caba MD R2) Objective Vitals Vital Signs Date Time Temp Pulse Resp B/P Pulse Ox O2 Delivery O2 Flow Rate FiO2 08/20/16 08:00 97.7 84 19 143/68 95 08/20/16 04:00 98.0 105 17 125/60 95 08/20/16 00:00 98.9 67 16 100/46 100 08/19/16 19:27 98.1 76 18 109/63 76 08/19/16 16:28 98.7 73 16 123/66 95 Arterial Line 08/19/16 12:43 97 21 08/19/16 12:00 98.0 67 18 113/53 94 I/O 08/19/16 08/19/16 08/19/16 08/20/16 08/20/16 08/20/16 07:00 15:00 23:00 07:00 15:00 23:00 Intake Total 480 ml 600 ml 480 ml Output Total 1030 ml 3125 ml 10 ml 1420 ml Balance -550 ml -2525 ml -10 ml -940 ml Intake Oral 480 ml 600 ml 480 ml Output Urine Total 1000 ml 3100 ml 1400 ml Drainage Total 30 ml 25 ml 10 ml 20 ml # Bowel Movements 0 0 0 (Rajni Gomez MD R2) Result Diagram: 08/20/16 0610 08/20/16 0610 Objective Remarks GEN: Well-developed, well-nourished patient. Very feisty and demanding to leave today. Sitting at edge of bed CV: Regular rate and rhythm without obvious murmurs LUNGS: Clear to auscultation bilaterally. Normal respiratory effort. No wheezes , rales, rhonchi. EXT: It looks remove bilateral lower extremities without issues. NEURO/PSYCH: Awake, alert. Normal speech (Rajni Gomez MD R2) A/P Assessment and Plan 70yo male with history significant for diabetes. Admitted due to spinal stenosis causing frequent falls. Discharge Planning 1-2 days Pending neurosurgery recs (Of note, patient is at high risk for leaving AMA) dw Dr. Adal muellerw Dr. Peres (Rajni Gomez MD R2) Attending Attestation Patient seen and examined. Case reviewed and discussed with the resident team. Agree with plan of care as discussed with me and documented in the resident note. (Brenda Peres MD) Problem List: (1) Spinal stenosis of lumbar region Status: Acute Plan: Frequent falls 1 week with no associated bowel or bladder incontinence/ retention. Endorsed lower back pain that radiated down to bilateral legs. No preceding events. -Mild leukocytosis which may be due to stress response -neuro checks -monitor I&O -Re consult PT as there is concern about ability to walk with a steady gait as he had fallen multiple times after surgery and his gait has not improved significantly since then per discussion with neurosurgery Neurosurgery consulted: appreciate recommendations * Surgical decompression and rajat-laminectomy with Dr. Briceno on 08/18 * Drain removed * Continue PT * would like post op MRI, will need anesthesia * Discussed case with Dr. Briceno who does not believe that patient will have a safe discharge if he goes home with home health. Would recommend rehabilitation at discharge as patient remains unstable and is likely to fall again. Imaging: * Thoracic MRI: Multi-level DDD. Stenosis at T9-10. T10-11 disc bulge and posterior element hypertrophy with severe central spinal stenosis with cord compression and edema. Chronic compression fracture through T7 * Cervical MRI: To posterior fixation with bilateral transpedicular fixation throughout cervical spine. Grade 1 anterior listhesis of C5 on 6 and C7 on T1. Indeterminant spinal stenosis. * Lumbar MRI: Severe central canal stenosis at the L4-L5 level secondary to disc bulge and degenerative disease. Moderate to severe central canal stenosis at the L3-L4 level secondary to disc bulge and degenerative changes. Mild central canal stenosis at the L1 and L2-3 levels. Diffuse moderate to severe degenerative disc disease. Narrowing of the neuroforamen bilaterally at the L3- L4 and L4 to 5 levels. * Head CT: No acute intracranial disease Medications: * Decadron 10 mg 1 (08/17) * Decadron 4 mg q8 (08/17-07/21) * Restart nicotine patch (2) Frequent falls Status: Acute Plan: See plan above (3) DM (diabetes mellitus) Status: Chronic Plan: Reports use of 16 units of Lantus. -Levemir 5 units BID + sliding scale -Hold metformin -Continue amitriptyline but at a decreased dose 50mg HS (4) Nutrition, metabolism, and development symptoms Status: Acute Plan: Diet: Diabetic diet Fluids: none Electrolytes: monitor, replace PRN DVT PPX: SCDs GI PPX: Protonix Chronic Conditions: * HTN: Lisinopril 10mg * HLD: continue home pravastatin 80mg daily * Depression: continue home Celexa but at decreased dose, due to multiple antidepressant and pt unsure of medications, will hold on Wellbutrin * BPH: continue home tamsulosin (Rajni Gomez MD R2) Problem Qualifiers (1) DM (diabetes mellitus): Rajni Gomez MD R2 Aug 20, 2016 09:42 Brenda Peres MD Aug 20, 2016 15:17
[2016-08-20 12:00] VITALS: BP 119/56; PULSE 81; RESP 18; TEMP 98.8; O2SAT 92
[2016-08-20 16:20] VITALS: BP 124/67; PULSE 20; RESP 16; TEMP 97.6; O2SAT 96
[2016-08-20 20:04] VITALS: BP 110/59; PULSE 78; RESP 16; TEMP 98; O2SAT 98
--- NOTE | 2016-08-20 20:05 | HHI.NSPN ---
History Chief Complaint: back pain Interval History 70 male presents with approximately 3 weeks of progressive gait difficulty, multiple falls in the past week. Initial imaging studies with severe T10-11 greater than T9 10 canal stenosis with severe cord compression and edema. Moderately severe L4 5 stenosis 08/18/2016: T9-11 decompressive laminectomy 08/19/16: Postoperative exam stable compared to preoperative assessment. 08/20/16: Continued aching and numbness lower extremities. Continued gait ataxia. Lower extremity strength grossly within normal limits. Drain discontinued. Exam Results Vital Signs Date Time Temp Pulse Resp B/P Pulse Ox O2 Delivery O2 Flow Rate FiO2 08/20/16 16:20 97.6 20 16 124/67 96 08/20/16 09:49 21 08/18/16 14:30 Nasal Cannula 3 Intake and Output 08/19/16 08/19/16 08/20/16 08:00 16:00 00:00 Intake Total 480 ml 600 ml Output Total 1030 ml 3125 ml 10 ml Balance -550 ml -2525 ml -10 ml Physical Examination Awake and alert Mild agitation Speech clear Follow simple commands well Sensation mildly impaired light touch upper extremities-stable since previous neck surgery according to patient. Delroy's response absent bilateral Sensation mildly diminished primarily distal left greater than right lower extremity to light touch. Strength is mostly 4-5/5 throughout the lower extremities. Diminished lower extremity coordination stable versus preoperative. Dressing is dry and intact. Moderate drain output. Lab, Micro, Other Results Laboratory Tests Test 08/20/16 06:10 White Blood Count 11.5 TH/MM3 Red Blood Count 4.54 MIL/MM3 Hemoglobin 11.9 GM/DL Hematocrit 34.8 % Mean Corpuscular Volume 76.8 FL Mean Corpuscular Hemoglobin 26.2 PG Mean Corpuscular Hemoglobin 34.1 % Concent Red Cell Distribution Width 20.7 % Platelet Count 198 TH/MM3 Mean Platelet Volume 7.5 FL Neutrophils (%) (Auto) 68.5 % Lymphocytes (%) (Auto) 19.7 % Monocytes (%) (Auto) 9.4 % Eosinophils (%) (Auto) 1.5 % Basophils (%) (Auto) 0.9 % Neutrophils # (Auto) 7.9 TH/MM3 Lymphocytes # (Auto) 2.3 TH/MM3 Monocytes # (Auto) 1.1 TH/MM3 Eosinophils # (Auto) 0.2 TH/MM3 Basophils # (Auto) 0.1 TH/MM3 CBC Comment AUTO DIFF Differential Comment AUTO DIFF CONFIRMED Platelet Estimate NORMAL Platelet Morphology Comment CLUMPED Sodium Level 136 MEQ/L Potassium Level 4.0 MEQ/L Chloride Level 100 MEQ/L Carbon Dioxide Level 29.3 MEQ/L Anion Gap 7 MEQ/L Blood Urea Nitrogen 12 MG/DL Creatinine 0.64 MG/DL Estimat Glomerular Filtration 124 ML/MIN Rate Random Glucose 165 MG/DL Calcium Level 8.4 MG/DL Medical Decision Making Impression and Plan Impression: 1. Stable neurologic exam status post T9-11 laminectomy decompression of spinal cord. 2. Diabetes 3. Hypertension Plan: Continue physical therapy Continue pain medications Would like to obtain postoperative MRI to ensure that the spinal cord is well decompressed. Plan follow-up MRI with anesthesia sedation on 08/21/16. Discussed with the patient. Discussed with anesthesia. Medicine service is following to assist with management of hypertension, diabetes and other medical issues. He remains on insulin sliding scale Discussed with medicine service as morning. The patient still has significant gait difficulty and there is a concern with fall risk if he is discharged home. I discussed this at length with the patient and he is very adamant that he will not go to shelter or inpatient rehabilitation and wants to be discharged home. He states that he has a home health aide from the [facility] for approximately 5 hours per day. Nicho Briceno MD Aug 20, 2016 20:05
[2016-08-20] MEDS: PANTOPRAZOLE SODIUM 40 MG VIAL IV PUSH SCH (20:40)
[2016-08-20] MEDS: TAMSULOSIN HCL 0.4 MG CAP PO SCH (20:41)
[2016-08-20] MEDS: AMITRIPTYLINE HCL 50 MG TAB PO SCH (20:42)
[2016-08-20] MEDS: PRAVASTATIN SOD 80 MG TAB PO SCH (20:42)
[2016-08-21] VITALS: BP 98/62; PULSE 72; RESP 16; TEMP 97; O2SAT 93
[2016-08-21] MEDS: oxyCODONE/ACETAMINOPHEN 7.5 MG/325 MG TAB PO PRN ×3 (02:39→08:57)
[2016-08-21 04:00] VITALS: BP 120/66; PULSE 93; RESP 17; TEMP 97.7; O2SAT 93
[2016-08-21 06:22] LABS: MEAN CELL VOLUME 76.9 FL (80.0-100.0); MEAN CORPUSCULAR HEMOGLOBIN 25.6 PG (27.0-34.0); MEAN CORPUSCULAR HGB CONC 33.2 % (32.0-36.0); PLATELET COUNT 219 TH/MM3 (150-450); RED BLOOD COUNT 4.68 MIL/MM3 (4.50-5.90); RED CELL DISTRIBUTION WIDTH 20.4 % (11.6-17.2); REVIEW FLAG FINAL; WHITE BLOOD COUNT 9.4 TH/MM3 (4.0-11.0)
[2016-08-21] MEDS: INSULIN ASPART SUPPLEMENTAL SCALE SQ SCH ×4 (07:00→21:46)
[2016-08-21 08:22] VITALS: BP 116/70; PULSE 78; RESP 16; TEMP 97.4; O2SAT 96
--- NOTE | 2016-08-21 08:30 | HHI.FPPN ---
Subjective Remarks Pt seen and examined this morning. No acute events overnight. Is wondering when he can go home. Is amenable to going to inpatient rehab and is hoping to get his strength back in his legs. (Emeka Galeas MD R1) Objective Vitals Vital Signs Date Time Temp Pulse Resp B/P Pulse Ox O2 Delivery O2 Flow Rate FiO2 08/21/16 04:00 97.7 93 17 120/66 93 08/21/16 00:00 97.0 72 16 98/62 93 08/20/16 20:04 98.0 78 16 110/59 98 08/20/16 16:20 97.6 20 16 124/67 96 08/20/16 12:00 98.8 81 18 119/56 92 08/20/16 09:49 21 I/O 08/20/16 08/20/16 08/20/16 08/21/16 08/21/16 08/21/16 07:00 15:00 23:00 07:00 15:00 23:00 Intake Total 480 ml 1080 ml 0 ml Output Total 1420 ml 675 ml 500 ml Balance -940 ml 405 ml -500 ml Intake Oral 480 ml 1080 ml 0 ml Output Urine Total 1400 ml 675 ml 500 ml Drainage Total 20 ml # Voids 1 # Bowel Movements 0 0 0 (Emeka Galeas MD R1) Result Diagram: 08/21/16 0605 08/20/16 0610 Objective Remarks GEN: Well-developed, well-nourished patient. Sitting up in bed. Wanting to go home CV: Regular rate and rhythm without obvious murmurs LUNGS: Clear to auscultation bilaterally. Normal respiratory effort. No wheezes , rales, rhonchi. BACK: Bandage in place upper back. NEURO/PSYCH: Awake, alert. Normal speech (Emeka Galeas MD R1) A/P Assessment and Plan 70yo male with history significant for diabetes. Admitted due to spinal stenosis causing frequent falls. Discharge Planning 1-2 days Pending neurosurgery recs (Of note, patient is at high risk for leaving AMA) wdw Dr. Peres (Emeka Galeas MD R1) Attending Attestation Patient seen and examined. Case reviewed and discussed with the resident team. Agree with plan of care as discussed with me and documented in the resident note. (Brenda Peres MD) Problem List: (1) Spinal stenosis of lumbar region Status: Acute Plan: Frequent falls 1 week with no associated bowel or bladder incontinence/ retention. Endorsed lower back pain that radiated down to bilateral legs. No preceding events. -Mild leukocytosis which may be due to stress response -neuro checks -monitor I&O -Re consult PT as there is concern about ability to walk with a steady gait as he had fallen multiple times after surgery and his gait has not improved significantly since then per discussion with neurosurgery Neurosurgery consulted: appreciate recommendations * Surgical decompression and rajat-laminectomy with Dr. Briceno on 08/18 * Drain removed * Continue PT * Post-op MRI today with anesthesia * Discussed case with Dr. Briceno who does not believe that patient will have a safe discharge if he goes home with home health. Would recommend rehabilitation at discharge as patient remains unstable and is likely to fall again. Imaging: * Thoracic MRI: Multi-level DDD. Stenosis at T9-10. T10-11 disc bulge and posterior element hypertrophy with severe central spinal stenosis with cord compression and edema. Chronic compression fracture through T7 * Cervical MRI: To posterior fixation with bilateral transpedicular fixation throughout cervical spine. Grade 1 anterior listhesis of C5 on 6 and C7 on T1. Indeterminant spinal stenosis. * Lumbar MRI: Severe central canal stenosis at the L4-L5 level secondary to disc bulge and degenerative disease. Moderate to severe central canal stenosis at the L3-L4 level secondary to disc bulge and degenerative changes. Mild central canal stenosis at the L1 and L2-3 levels. Diffuse moderate to severe degenerative disc disease. Narrowing of the neuroforamen bilaterally at the L3- L4 and L4 to 5 levels. * Head CT: No acute intracranial disease Medications: * Decadron 10 mg 1 (08/17) * Decadron 4 mg q8 (08/17-07/21) * Nicotine patch (2) Frequent falls Status: Acute Plan: See plan above (3) DM (diabetes mellitus) Status: Chronic Plan: Reports use of 16 units of Lantus. -Levemir 5 units BID + sliding scale -Hold metformin -Continue amitriptyline but at a decreased dose 50mg HS (4) Nutrition, metabolism, and development symptoms Status: Acute Plan: Diet: NPO for anesthesia/MRI this am, then diabetic diet Fluids: none Electrolytes: monitor, replace PRN DVT PPX: SCDs GI PPX: Protonix Chronic Conditions: * HTN: Lisinopril 10mg * HLD: continue home pravastatin 80mg daily * Depression: continue home Celexa but at decreased dose, due to multiple antidepressant and pt unsure of medications, will hold on Wellbutrin * BPH: continue home tamsulosin (Emeka Galeas MD R1) Problem Qualifiers (1) DM (diabetes mellitus): Emeka Galeas MD R1 Aug 21, 2016 08:30 Brenda Peres MD Aug 21, 2016 15:38
[2016-08-21] MEDS: DOCUSATE SODIUM 50 MG/SENNA 8.6 MG TAB PO SCH ×2 (08:57→21:45)
[2016-08-21] MEDS: CITALOPRAM HYDROBROMIDE 20 MG TAB PO SCH (08:58)
[2016-08-21] MEDS: SODIUM CHLORIDE 0.9% FLUSH 5 ML FLUSH IVF SCH ×2 (08:59→21:50)
[2016-08-21] MEDS: NICOTINE 14 MG/24 HR PATCH TD SCH (09:00)
[2016-08-21] MEDS: INSULIN DETEMIR 100 UNITS/ML VIAL SQ SCH ×2 (09:00→21:00)
[2016-08-21] MEDS: POLYETHYLENE GLYCOL 17 GM PKG PO SCH (09:00)
[2016-08-21] MEDS: LISINOPRIL 10 MG TAB PO SCH (09:00)
[2016-08-21] MEDS ORDERED: PROPOFOL 200 MG/20 ML AMP IV ONE (09:41)
[2016-08-21] MEDS ORDERED: NALOXONE HCL 0.4 MG/ML AMP IV PRN (10:45)
[2016-08-21] MEDS ORDERED: HYDROmorphone HCL PF 1 MG/ML VIAL IV PRN (10:45)
--- NOTE | 2016-08-21 14:29 | HHI.NSPN ---
History Chief Complaint: back pain Interval History 70 male presents with approximately 3 weeks of progressive gait difficulty, multiple falls in the past week. Initial imaging studies with severe T10-11 greater than T9 10 canal stenosis with severe cord compression and edema. Moderately severe L4 5 stenosis 08/18/2016: T9-11 decompressive laminectomy 08/19/16: Postoperative exam stable compared to preoperative assessment. 08/20/16: Continued aching and numbness lower extremities. Continued gait ataxia. Lower extremity strength grossly within normal limits. Drain discontinued. 08/21/16: Sitting up in a chair. Complains of moderate back pain. Incision is healing well without increased erythema, edema, tenderness. Exam Results Vital Signs Date Time Temp Pulse Resp B/P Pulse Ox O2 Delivery O2 Flow Rate FiO2 08/21/16 08:22 97.4 78 16 116/70 96 08/20/16 09:49 21 08/18/16 14:30 Nasal Cannula 3 Intake and Output 08/20/16 08/20/16 08/21/16 08:00 16:00 00:00 Intake Total 480 ml 720 ml 360 ml Output Total 1420 ml 675 ml Balance -940 ml 45 ml 360 ml Physical Examination Awake and alert Speech clear Follow simple commands well Sensation mildly impaired light touch upper extremities-stable since previous neck surgery according to patient. Delroy's response absent bilateral Sensation mildly diminished primarily distal left greater than right lower extremity to light touch. Strength is mostly 4-5/5 throughout the lower extremities. Diminished lower extremity coordination stable versus preoperative. Dressing is dry and intact. The incision is healing well without increased erythema or edema and no drainage Lab, Micro, Other Results 08/21/16 MRI thoracic spine images reviewed with radiology. Agree with findings as noted below: Thoracic Spine MRI 08/21/16 0000 Signed Impressions: Service Date/Time: July 13:59 - CONCLUSION: 1. Post-surgical changes with wide leftward laminectomy at T9-10 and T10-11. 2. At T10-11, this markedly improves the diameter of the spinal canal and releases the previously seen cord compression. There is still some edema in the cord at this level, however. 3. Abnormal signal extending into the posterior epidural space leftward at T9-10. This may represent some postoperative hematoma or seroma but does not appear to result in cord compromise. 4. Chronic appearing compression fracture through the anterior-superior aspect of T7. Stable posterior fixation from T1 through T3. 5. Interval improvement in bilateral effusion/atelectasis. Hakeem Amaro MD Laboratory Tests Test 08/21/16 06:05 White Blood Count 9.4 TH/MM3 Red Blood Count 4.68 MIL/MM3 Hemoglobin 12.0 GM/DL Hematocrit 36.0 % Mean Corpuscular Volume 76.9 FL Mean Corpuscular Hemoglobin 25.6 PG Mean Corpuscular Hemoglobin 33.2 % Concent Red Cell Distribution Width 20.4 % Platelet Count 219 TH/MM3 Mean Platelet Volume 7.3 FL Medical Decision Making Impression and Plan Impression: 1. Stable neurologic exam status post T9-11 laminectomy decompression of spinal cord. 08/21/16 follow-up MRI thoracic spine images reviewed with radiology. There appears to be adequate decompression of the spinal cord at the T9-11 levels with probable small focal area of epidural hematoma formation at the left T9-10 laminectomy defect without significant cord compression. There is moderate residual edema/myelomalacia within the cord, similar to preoperative study. 2. Diabetes 3. Hypertension Plan: Continue physical therapy Continue pain medications Baclofen for lower extremity spasticity Continue low-dose hydromorphone at present for adequate pain control MRI findings discussed at length with the patient. He is stable for discharge home with home health physical therapy and other nursing care is needed per home health care nursing assessment. Plan follow-up neurosurgery evaluation outpatient in approximately 10-14 days. Wound care discussed. Medicine service is following to assist with management of hypertension, diabetes and other medical issues. He remains on insulin sliding scale I discussed discharge plans again with the patient today and he remains very adamant that he will not go to group home or inpatient rehabilitation and wants to be discharged home. He states that he has a home health aide from the [facility] for approximately 5 hours per day. Nicho Briceno MD Aug 21, 2016 14:29
[2016-08-21] MEDS ORDERED: *HYDROmorphone PF 1 MG VIAL PERIprocedural Use ONLY ONE (15:18)
[2016-08-21] MEDS ORDERED: BACL10TA PO (15:34)
[2016-08-21] MEDS ORDERED: DILA2TAB2 PO (15:34)
[2016-08-21] MEDS ORDERED: DO NOT ADM ANY ANTICOAGULANT DRUGS XX PRN (15:45)
[2016-08-21] MEDS ORDERED: SODIUM CHLORIDE 0.9% FLUSH 5 ML FLUSH IVF PRN (15:45)
[2016-08-21 16:30] VITALS: BP 117/67; PULSE 110; RESP 18; TEMP 97.4; O2SAT 95
--- NOTE | 2016-08-21 16:35 | RADRPT ---
EXAM DATE/TIME: 08/21/2016 13:59 [facility] COMPARISON: MRI THORACIC SPINE W/O CONTRAST, August 18, 2016, 8:18. INDICATIONS : Myelopathy. Status post laminectomy. MEDICAL HISTORY : Hypertension. Diabetes mellitus type 2. Congestive heart failure. Coronary artery disease. SURGICAL HISTORY : Left knee, prostate and back surgery. ENCOUNTER: Initial ACUITY: 1 day PAIN SCORE: 5/10 LOCATION: Back. TECHNIQUE: Multiplanar multisequence MRI of the thoracic spine was performed. FINDINGS: The sagittal T1, T2 and inversion recovery images show post surgical changes at T9-10 a nd T10-11. Decompressive laminectomies are seen leftward at both levels. This results in marked dec ompression of the T10-11 spinal canal but there is still some cord edema at this level. The discs at T9-10 and T10-11 persist and there is now some abnormal signal identified posterior to the cord left lemus at T9-10. Again, there appears to be a chronic compression fracture through the anterior-superi or aspect of the T7 vertebral body with posterior fixation from T1 through T3. Bilateral atelectatic changes/effusions in the bases show interval improvement. Detailed axial images as follows: T1-T2: Posterior fixation. Spinal canal is patent. T2-T3: Posterior fixation. Spinal canal is patent. T3-T4: The thecal sac has a normal diameter. No evidence of disc bulge or protrusion. T4-T5: The thecal sac has a normal diameter. No evidence of disc bulge or protrusion. T5-T6: The thecal sac has a normal diameter. No evidence of disc bulge or protrusion. T6-T7: The thecal sac has a normal diameter. No evidence of disc bulge or protrusion. T7-T8: The thecal sac has a normal diameter. No evidence of disc bulge or protrusion. T8-T9: The thecal sac has a normal diameter. No evidence of disc bulge or protrusion. T9-T10: Predominantly leftward laminectomy. There is some abnormal signal extending into the left p osterior spinal canal which abuts up against the thecal sac but does not appear to result in cord com promise. T10-T11: Wide left-sided decompressive laminectomy. This markedly improves the space in the spinal canal at this level. Cord edema persists but the cord appears to have been effectively decompressed. T11-T12: The thecal sac has a normal diameter. No evidence of disc bulge or protrusion. T12-L1: The thecal sac has a normal diameter. No evidence of disc bulge or protrusion. CONCLUSION: 1. Post-surgical changes with wide leftward laminectomy at T9-10 and T10-11. 2. At T10-11, this markedly improves the diameter of the spinal canal and releases the previously see n cord compression. There is still some edema in the cord at this level, however. 3. Abnormal signal extending into the posterior epidural space leftward at T9-10. This may represent some postoperative hematoma or seroma but does not appear to result in cord compromise. 4. Chronic appearing compression fracture through the anterior-superior aspect of T7. Stable posterio r fixation from T1 through T3. 5. Interval improvement in bilateral effusion/atelectasis. Hakeem Amaro MD on August 21, 2016 at 16:15 Board Certified Radiologist. This report was verified electronically.
[2016-08-21] MEDS: BACLOFEN 10 MG TAB PO SCH ×2 (16:37→21:45)
[2016-08-21] MEDS: 1/2 NS + KCL 20 MEQ INJ 1,000 ML IV SCH (16:38)
[2016-08-21] MEDS ORDERED: PANTOPRAZOLE SOD 40 MG DELAYED RELEASE TAB PO SCH (18:00)
--- NOTE | 2016-08-21 18:12 | RADRPT ---
EXAM DATE/TIME: 08/21/2016 13:59 [facility] COMPARISON: MRI LUMBAR SPINE W/O CONTRAST, August 17, 2016, 13:42. INDICATIONS : Myelopathy. Cord compression post laminectomy. MEDICAL HISTORY : Congestive heart failure. Diabetes mellitus type 2. Hypertension. Coronary artery disease. SURGICAL HISTORY : Back surgery, left knee arthroscopy and prostate. ENCOUNTER: Initial ACUITY: 1 day PAIN SCORE: 3/10 LOCATION: Back. TECHNIQUE: Multiplanar multisequence MRI of the lumbar spine was performed without contrast. FINDINGS: Diffuse degenerative changes are noted throughout the lumbar spine at all levels. Discogenic endplat e changes are noted at all levels. Loss of disc signal and height are also noted at all levels consis tent with severe degenerative disc disease. There is no acute compression fracture or spondylolisthe sis. Degenerative disc disease and discogenic endplate changes are also noted at T12-L1. T12-L1: There is minimal diffuse disc osteophyte complex, facet joint hypertrophy and ligamentous laxity resu lting in no significant spinal stenosis or neural foraminal narrowing at this level. L1-2: There is mild to moderate spinal stenosis and bilateral foraminal narrowing secondary to a combinatio n of diffuse disc osteophyte complex which is slightly asymmetric to the left, facet joint hypertroph y and ligamentous laxity. No focal disc herniation is noted. L2-3: There is mild circumferential spinal stenosis and minimal bilateral foraminal narrowing secondary to a combination of diffuse disc osteophyte complex, facet joint hypertrophy and ligamentous laxity. No focal disc herniation is noted. L3-4: There is moderate to severe circumferential spinal stenosis and severe bilateral foraminal narrowing secondary to a combination of diffuse disc osteophyte complex, facet joint hypertrophy and ligamentou s laxity. No focal disc herniation is noted. L4-5: There is severe circumferential spinal stenosis and bilateral foraminal narrowing secondary to a comb ination of diffuse disc osteophyte complex, facet joint hypertrophy and ligamentous laxity. No focal disc herniation is noted. L5-S1: There is severe bilateral foraminal narrowing predominantly related to diffuse disc osteophyte comple x and facet joint hypertrophy. No spinal stenosis or focal disc herniation is noted. CONCLUSION: 1. Severe spinal stenosis bilateral foraminal narrowing at L4-5. 2. Moderate to severe spinal stenosis and severe bilateral foraminal narrowing at L3-4. 3. Mild to moderate spinal stenosis and bilateral foraminal narrowing at L1-2. 4. Mild spinal stenosis and minimal bilateral foraminal narrowing at L2-3. 5. Diffuse degenerative disc disease from T12 through S1. Roderick Hull MD on August 21, 2016 at 17:55 Board Certified Radiologist. This report was verified electronically.
[2016-08-21 19:20] VITALS: BP 117/57; PULSE 88; RESP 18; TEMP 99.7; O2SAT 96
[2016-08-21] MEDS: AMITRIPTYLINE HCL 50 MG TAB PO SCH (21:45)
[2016-08-21] MEDS: PRAVASTATIN SOD 80 MG TAB PO SCH (21:45)
[2016-08-21] MEDS: HYDROmorphone HCL 2 MG TAB PO PRN (21:46)
[2016-08-21] MEDS: TAMSULOSIN HCL 0.4 MG CAP PO SCH (21:50)
[2016-08-21 21:51] VITALS: O2SAT 91
--- NOTE | 2016-08-21 22:08 | HHI.DCPOC ---
Discharge Care Plan Diagnosis: (1) Spinal cord compression (2) Spinal stenosis of lumbar region (3) Thoracic myelopathy (4) DM (diabetes mellitus) Your Health Problems Are: Difficulty with ADL Incision/Drains Exercise Tolerance Loss of Movements Chronic Pain Goals to Promote Your Health * To prevent worsening of your condition and complications * To maintain your health at the optimal level Directions to Meet Your Goals Take your medications as prescribed Follow your dietary instruction Follow activity as directed Keep your appointments as scheduled Take your immunizations and boosters as scheduled If your symptoms worsen call your PCP, if no PCP go to Urgent Care Center or Emergency Room Smoking is Dangerous to Your Health. Avoid second hand smoke Call the 24-hour hour crisis hotline for domestic abuse at Nicho Briceno MD Aug 21, 2016 22:08
--- NOTE | 2016-08-21 22:10 | HHI.FF ---
Face to Face Verification Diagnosis: (1) Spinal stenosis of lumbar region (2) DM (diabetes mellitus) (3) Thoracic myelopathy Physical Therapy Order: Evaluate and Treat, Improve ambulation, Strength and gait training Home Health Nursing Order: Medical education Diabetic education Wound care and dressing changes Instructions: Assess patient home safety and care needs. Fall risk I have seen patient Houston Johnston on 08/21/16. My clinical findings support the need for the requested home health care services because: Ltd mobility - disease progression Deconditioned w/ increased weakness Limited ability to care for self Impaired cognition/judgement High risk of falls I certify that my clinical findings support that this patient is homebound because: Post-op weakness Impaired cognitive ability/safety Unsteady gait/balance Unsafe to leave home unassisted Need for psychosocial assistance Unable to use public transportation Nicho Briceno MD Aug 21, 2016 22:10
[2016-08-22] VITALS: BP 111/50; PULSE 79; RESP 20; TEMP 98.6; O2SAT 96
[2016-08-22] MEDS: 1/2 NS + KCL 20 MEQ INJ 1,000 ML IV SCH ×2 (01:35→11:35)
[2016-08-22] MEDS: HYDROmorphone HCL 2 MG TAB PO PRN (04:02)
[2016-08-22] MEDS: BACLOFEN 10 MG TAB PO SCH ×2 (06:31→13:57)
[2016-08-22] MEDS: INSULIN ASPART SUPPLEMENTAL SCALE SQ SCH ×3 (06:32→16:26)
[2016-08-22 08:00] VITALS: BP 114/56; PULSE 83; RESP 16; TEMP 98.1; O2SAT 96
[2016-08-22] MEDS: CITALOPRAM HYDROBROMIDE 20 MG TAB PO SCH (08:43)
[2016-08-22] MEDS: POLYETHYLENE GLYCOL 17 GM PKG PO SCH (08:44)
[2016-08-22] MEDS: DOCUSATE SODIUM 50 MG/SENNA 8.6 MG TAB PO SCH (08:45)
[2016-08-22] MEDS: NICOTINE 14 MG/24 HR PATCH TD SCH (08:46)
[2016-08-22] MEDS: INSULIN DETEMIR 100 UNITS/ML VIAL SQ SCH (08:46)
[2016-08-22] MEDS: SODIUM CHLORIDE 0.9% FLUSH 5 ML FLUSH IVF SCH (08:50)
[2016-08-22 09:51] VITALS: O2SAT 96
[2016-08-22] MEDS: LISINOPRIL 10 MG TAB PO SCH (09:57)
[2016-08-22 12:00] VITALS: BP_SYST 110; BP_SYST 115; BP_DIAS 57; BP_DIAS 64; PULSE 77; PULSE 79; RESP 16; RESP 17; TEMP 96.2; TEMP 98.8; O2SAT 93; O2SAT 98
[2016-08-22 12:47] LABS: HEMATOCRIT 33.8 % (39.0-51.0); MEAN CELL VOLUME 76.7 FL (80.0-100.0); MEAN CORPUSCULAR HEMOGLOBIN 25.5 PG (27.0-34.0); MEAN CORPUSCULAR HGB CONC 33.3 % (32.0-36.0); PLATELET COUNT 237 TH/MM3 (150-450); RED BLOOD COUNT 4.41 MIL/MM3 (4.50-5.90); RED CELL DISTRIBUTION WIDTH 20.3 % (11.6-17.2); REVIEW FLAG FINAL; WHITE BLOOD COUNT 7.5 TH/MM3 (4.0-11.0)
[2016-08-22 13:30] LABS: BICARBONATE 28.3 MEQ/L (21.0-32.0); POTASSIUM 3.8 MEQ/L (3.5-5.1)
--- NOTE | 2016-08-22 13:44 | HHI.FPPN ---
Subjective Remarks Pt seen and examined this morning. Pt walking hallways with physical therapy. Continues to refuse inpatient rehab. Neurosurgery has discharged pt to home with home health. (Emeka Galeas MD R1) Objective Vitals Vital Signs Date Time Temp Pulse Resp B/P Pulse Ox O2 Delivery O2 Flow Rate FiO2 08/22/16 09:51 96 21 08/22/16 08:00 98.1 83 16 114/56 96 08/22/16 07:20 Room Air 08/22/16 00:00 98.6 79 20 111/50 96 08/21/16 21:51 91 08/21/16 19:20 99.7 88 18 117/57 96 Arterial Line 08/21/16 16:30 97.4 110 18 117/67 95 08/21/16 15:45 76 20 126/55 91 Nasal Cannula 3 08/21/16 15:30 78 20 131/59 94 Nasal Cannula 3 08/21/16 15:15 95 20 118/47 92 Nasal Cannula 3 08/21/16 14:58 98.4 88 20 130/53 91 Nasal Cannula 3 I/O 08/21/16 08/21/16 08/21/16 08/22/16 08/22/16 08/22/16 07:00 15:00 23:00 07:00 15:00 23:00 Intake Total 0 ml 300 ml 580 ml 240 ml Output Total 500 ml 400 ml 500 ml Balance -500 ml 300 ml 180 ml -260 ml Intake Oral 0 ml 0 ml 480 ml 240 ml IV Total 100 ml Other 300 ml Output Urine Total 500 ml 400 ml 500 ml # Voids 4 # Bowel Movements 0 (Emeka Galeas MD R1) Result Diagram: 08/22/16 1227 08/22/16 1227 Objective Remarks GEN: Well-developed, well-nourished patient. Walking with walker CV: Regular rate and rhythm without obvious murmurs LUNGS: Clear to auscultation bilaterally. Normal respiratory effort. No wheezes , rales, rhonchi. BACK: Bandage in place upper back. NEURO/PSYCH: Awake, alert. Normal speech (Emeka Galeas MD R1) A/P Assessment and Plan 70yo male with history significant for diabetes. Admitted due to spinal stenosis causing frequent falls. Discharge Planning Today with home health Pt is refusing inpatient rehab placement and will only accept home with home health. If patient returns, we will not accept him back to our resident team. sdw Dr. Peres (Emeka Galeas MD R1) Assessment and Plan At time of discharge, patient is refusing rehabilitation. He was offered many opportunities to change his mind but is adamant about going home without rehab. Attending Attestation Patient seen and examined. Case reviewed and discussed with the resident team. Agree with plan of care as discussed with me and documented in the resident note. (Brenda Peres MD) Problem List: (1) Spinal stenosis of lumbar region Status: Acute Plan: Frequent falls 1 week with no associated bowel or bladder incontinence/ retention. Endorsed lower back pain that radiated down to bilateral legs. No preceding events. -Mild leukocytosis which may be due to stress response -neuro checks -monitor I&O -Re consult PT as there is concern about ability to walk with a steady gait as he had fallen multiple times after surgery and his gait has not improved significantly since then per discussion with neurosurgery Neurosurgery consulted: appreciate recommendations * Surgical decompression and rajat-laminectomy with Dr. Briceno on 08/18 * Drain removed * Continue PT * Discussed case with Dr. Briceno who does not believe that patient will have a safe discharge if he goes home with home health. Would recommend rehabilitation at discharge as patient remains unstable and is likely to fall again. * Patient discharged by Dr. Briceno because pt is refusing inpatient rehab and will only go with home health. Imaging: * Thoracic MRI: Multi-level DDD. Stenosis at T9-10. T10-11 disc bulge and posterior element hypertrophy with severe central spinal stenosis with cord compression and edema. Chronic compression fracture through T7 * Cervical MRI: To posterior fixation with bilateral transpedicular fixation throughout cervical spine. Grade 1 anterior listhesis of C5 on 6 and C7 on T1. Indeterminant spinal stenosis. * Lumbar MRI: Severe central canal stenosis at the L4-L5 level secondary to disc bulge and degenerative disease. Moderate to severe central canal stenosis at the L3-L4 level secondary to disc bulge and degenerative changes. Mild central canal stenosis at the L1 and L2-3 levels. Diffuse moderate to severe degenerative disc disease. Narrowing of the neuroforamen bilaterally at the L3- L4 and L4 to 5 levels. * Head CT: No acute intracranial disease Medications: * Decadron 10 mg 1 (08/17) * Decadron 4 mg q8 (08/17-07/21) * Nicotine patch (2) Frequent falls Status: Acute Plan: See plan above (3) DM (diabetes mellitus) Status: Chronic Plan: Reports use of 16 units of Lantus. -Levemir 5 units BID + sliding scale -Hold metformin -Continue amitriptyline but at a decreased dose 50mg HS (4) Nutrition, metabolism, and development symptoms Status: Acute Plan: Diet: Diabetic diet Fluids: none Electrolytes: monitor, replace PRN DVT PPX: SCDs GI PPX: Protonix Chronic Conditions: * HTN: Lisinopril 10mg * HLD: continue home pravastatin 80mg daily * Depression: continue home Celexa but at decreased dose, due to multiple antidepressant and pt unsure of medications, will hold on Wellbutrin * BPH: continue home tamsulosin (Emeka Galeas MD R1) Problem Qualifiers (1) DM (diabetes mellitus): Emeka Galeas MD R1 Aug 22, 2016 13:44 Brenda Peres MD Aug 22, 2016 13:56
--- NOTE | 2016-08-22 13:47 | HHI.DS ---
Discharge Summary Admission Date Aug 17, 2016 at 15:11 Discharge Date: Aug 22, 2016 Admitting Diagnosis spinal stenosis, spinal cord compression, frequent falls (1) Spinal stenosis of lumbar region Diagnosis: Principal Plan: Frequent falls 1 week with no associated bowel or bladder incontinence/ retention. Endorsed lower back pain that radiated down to bilateral legs. No preceding events. -Mild leukocytosis which may be due to stress response -neuro checks -monitor I&O -Re consult PT as there is concern about ability to walk with a steady gait as he had fallen multiple times after surgery and his gait has not improved significantly since then per discussion with neurosurgery Neurosurgery consulted: appreciate recommendations * Surgical decompression and rajat-laminectomy with Dr. Briceno on 08/18 * Drain removed * Continue PT * Discussed case with Dr. Briceno who does not believe that patient will have a safe discharge if he goes home with home health. Would recommend rehabilitation at discharge as patient remains unstable and is likely to fall again. * Patient discharged by Dr. Briceno because pt is refusing inpatient rehab and will only go with home health. Imaging: * Thoracic MRI: Multi-level DDD. Stenosis at T9-10. T10-11 disc bulge and posterior element hypertrophy with severe central spinal stenosis with cord compression and edema. Chronic compression fracture through T7 * Cervical MRI: To posterior fixation with bilateral transpedicular fixation throughout cervical spine. Grade 1 anterior listhesis of C5 on 6 and C7 on T1. Indeterminant spinal stenosis. * Lumbar MRI: Severe central canal stenosis at the L4-L5 level secondary to disc bulge and degenerative disease. Moderate to severe central canal stenosis at the L3-L4 level secondary to disc bulge and degenerative changes. Mild central canal stenosis at the L1 and L2-3 levels. Diffuse moderate to severe degenerative disc disease. Narrowing of the neuroforamen bilaterally at the L3- L4 and L4 to 5 levels. * Head CT: No acute intracranial disease Medications: * Decadron 10 mg 1 (08/17) * Decadron 4 mg q8 (08/17-07/21) * Nicotine patch (2) Frequent falls Diagnosis: Principal Plan: See plan above (3) DM (diabetes mellitus) Diagnosis: Secondary Plan: Reports use of 16 units of Lantus. -Levemir 5 units BID + sliding scale -Hold metformin -Continue amitriptyline but at a decreased dose 50mg HS (4) Nutrition, metabolism, and development symptoms Diagnosis: Secondary Plan: Diet: Diabetic diet Fluids: none Electrolytes: monitor, replace PRN DVT PPX: SCDs GI PPX: Protonix Chronic Conditions: * HTN: Lisinopril 10mg * HLD: continue home pravastatin 80mg daily * Depression: continue home Celexa but at decreased dose, due to multiple antidepressant and pt unsure of medications, will hold on Wellbutrin * BPH: continue home tamsulosin [facility] Procedures T9-10 and T10-11 decompressive semi-hemilaminectomy Brief History History limited due to Ativan given at time of interview as well as being a poor historian. Patient is a 70-year-old male with PMH significant for DM who presents today due to frequent falls over the last week. Reports that his legs do not hold him up. Has fallen about 10 times within the last 48 hours. Denies any preceding events such as trauma. Denies any urinary retention or incontinence or bowel incontinence. Reports sharp lower back pain that radiates down to bilateral extremities. Endorses bilateral peripheral neuropathy that limits some of his sensation/pain. Prior to this week he endorses some lower back pain over the last several weeks but otherwise reports no acute changes. Symptoms improved when leaning forward. CBC/BMP: 08/22/16 1227 08/22/16 1227 Significant Findings Laboratory Tests Test 08/20/16 08/21/16 08/22/16 06:10 06:05 12:27 White Blood Count 11.5 TH/MM3 (4.0-11.0) Hemoglobin 11.9 GM/DL 12.0 GM/DL 11.3 GM/DL (13.0-17.0) (13.0-17.0) (13.0-17.0) Hematocrit 34.8 % 36.0 % 33.8 % (39.0-51.0) (39.0-51.0) (39.0-51.0) Mean Corpuscular Volume 76.8 FL 76.9 FL 76.7 FL (80.0-100.0) (80.0-100.0) (80.0-100.0) Mean Corpuscular Hemoglobin 26.2 PG 25.6 PG 25.5 PG (27.0-34.0) (27.0-34.0) (27.0-34.0) Red Cell Distribution Width 20.7 % 20.4 % 20.3 % (11.6-17.2) (11.6-17.2) (11.6-17.2) Monocytes (%) (Auto) 9.4 % (0.0-8.0) Neutrophils # (Auto) 7.9 TH/MM3 (1.8-7.7) Monocytes # (Auto) 1.1 TH/MM3 (0-0.9) Platelet Morphology Comment CLUMPED (NORMAL) Random Glucose 165 MG/DL 258 MG/DL (74-106) (74-106) Calcium Level 8.4 MG/DL 8.2 MG/DL (8.5-10.1) (8.5-10.1) Red Blood Count 4.41 MIL/MM3 (4.50-5.90) Sodium Level 133 MEQ/L (136-145) Imaging Last Impressions Thoracic Spine MRI 08/21/16 0000 Signed Impressions: Service Date/Time: July 13:59 - CONCLUSION: 1. Post-surgical changes with wide leftward laminectomy at T9-10 and T10-11. 2. At T10-11, this markedly improves the diameter of the spinal canal and releases the previously seen cord compression. There is still some edema in the cord at this level, however. 3. Abnormal signal extending into the posterior epidural space leftward at T9-10. This may represent some postoperative hematoma or seroma but does not appear to result in cord compromise. 4. Chronic appearing compression fracture through the anterior-superior aspect of T7. Stable posterior fixation from T1 through T3. 5. Interval improvement in bilateral effusion/atelectasis. Hakeem Amaro MD Lumbar Spine MRI 08/21/16 0000 Signed Impressions: Service Date/Time: July 13:59 - CONCLUSION: 1. Severe spinal stenosis bilateral foraminal narrowing at L4-5. 2. Moderate to severe spinal stenosis and severe bilateral foraminal narrowing at L3-4. 3. Mild to moderate spinal stenosis and bilateral foraminal narrowing at L1-2. 4. Mild spinal stenosis and minimal bilateral foraminal narrowing at L2-3. 5. Diffuse degenerative disc disease from T12 through S1. Roderick Hull MD Thoracic Spine X-Ray 08/18/16 0000 Signed Impressions: Service Date/Time: Thursday, August 18, 2016 10:43 - CONCLUSION: Localization as above. Levels were determined by the prominent anterior spur at T11-12. Hakeem Amaro MD Chest X-Ray 08/18/16 0000 Signed Impressions: Service Date/Time: Thursday, August 18, 2016 14:51 - CONCLUSION: 1. Central venous catheter appears in satisfactory position as above. Hadley Serrano MD Cervical Spine MRI 08/18/16 Signed Impressions: Service Date/Time: Thursday, August 18, 2016 08:18 - CONCLUSION: 1. Extensive posterior fixation with bilateral transpedicular fixation throughout the cervical spine. 2. Straightening of the normal lordotic curvature with minimal grade I anterolisthesis of C5 on 6 and C7 on T1 and minimal grade I retrolisthesis of C6 on C7. 3. I believe the spinal canal is adequate throughout the cervical spine but the anatomic detail is quite limited due to susceptibility artifact from C5 through C7. 4. Similarly, the integrity of the neural foramina at C5 -6 and C6-7 are somewhat difficult to determine. I believe the neural foramina are adequate at all remaining levels, however. 5. Not mentioned above, there is a 1.6 cm cyst in the right lobe of the thyroid. Hakeem Amaro MD Thoracic Spine CT 08/17/16 0000 Signed Impressions: Service Date/Time: Wednesday, August 17, 2016 23:44 - CONCLUSION: Severe degenerative changes and subacute appearing T7 compression fracture with slight loss of vertebral body height along the superior endplate. Patchy reactive sclerosis. Multilevel canal and foraminal stenoses. Eric Miller MD Lumbar Spine CT 08/17/16 0000 Signed Impressions: Service Date/Time: Wednesday, August 17, 2016 23:44 - CONCLUSION: Severe degenerative changes are noted as above. Eric Miller MD Head CT 08/17/16 0000 Signed Impressions: Service Date/Time: Wednesday, August 17, 2016 12:51 - CONCLUSION: No acute intracranial disease. Isauro Farnsworth MD Cervical Spine CT 08/17/16 0000 Signed Impressions: Service Date/Time: Wednesday, August 17, 2016 23:42 - CONCLUSION: Extensive postsurgical changes are seen without definite canal stenosis. Multilevel foraminal stenosis and degenerative disc disease. Eric Miller MD PE at Discharge GEN: Well-developed, well-nourished patient. Walking with walker CV: Regular rate and rhythm without obvious murmurs LUNGS: Clear to auscultation bilaterally. Normal respiratory effort. No wheezes , rales, rhonchi. BACK: Bandage in place upper back. NEURO/PSYCH: Awake, alert. Normal speech Hospital Course 70 y/o male with history of DM presented with frequent falls. Found to have spinal stenosis on MRI. Neurosurgery was consulted, who planned decompressive surgery. Pt tolerated procedure well. Pt improved slowly after surgery. Pt underwent physical therapy. Inpatient rehab was recommended, however patient refused and wanted to leave AMA. Pt will be discharged to home with home health as only option. Pt discharged with home health and follow-up with Dr. Briceno. Pt Condition on Discharge: Stable Discharge Disposition: Disch w/ Home Health Serv Discharge Instructions DIET: Follow Instructions for: Diabetic Diet Activities you can perform: Weight Bearing as Robin Activities to Avoid: Lifting/Bending, Strenuous Activity Follow up Referrals: Appointment for Follow Up @ Dr. Briceno [facility] Physical Therapy New Medications: Baclofen (Baclofen) 10 Mg Tab 10 MG PO Q8HR spasm #90 Ref 1 TAB Hydromorphone (Dilaudid) 2 Mg Tab 2 MG PO Q4H PRN PAIN SCALE 6 TO 10 #90 Ref 0 TAB Continued Medications: Albuterol 18 GM Inh (Ventolin Hfa 18 GM Inh) 90 Mcg/Act Aer 2 PUFF INH Q6H PRN WHEEZING #1 Ref 0 INHALER Amitriptyline (Amitriptyline) 75 Mg Tab 75 MG PO HS Control Depression #30 Ref 0 TAB Aspirin (Aspirin Adult Low Strength) 81 Mg Chew 81 MG PO DAILY TAB Bisacodyl Supp (Dulcolax Supp) 10 Mg Supp 10 MG SD BID PRN CONSTIPATION Ref 0 SUPP Buprenorphine-Naloxone (Buprenorphine-Naloxone) 8-2 Mg Subl 1 TAB SL BID TAB Bupropion HCl ER 12 HR (Wellbutrin SR 12 HR) 150 Mg Tab 150 MG PO Q12HR Control Depression Ref 0 TAB Capsaicin Topical (Capsaicin Topical) 0.025% Cream 1 APPLIC TOPICAL QID PRN Pain Relief #1 TUBE Dicyclomine (Dicyclomine) 10 Mg Cap 10 MG PO TID Bowel Management Ref 0 CAP Docusate Sodium (Colace) 100 Mg Cap 100 MG PO BID PRN Constipation #60 Ref 0 CAP Flunisolide Nasal Spurger (Flunisolide Nasal Spurger) 0.025 Mg/Act Naspr 2 SPRAY EACH NARE DAILY PRN NASAL CONGESTION #1 Ref 0 BOTTLE Fluocinonide Topical (Fluocinonide Topical) 0.05% Cream 1 APPLIC TOPICAL BID Apply thin layer to affected area(s) PRN ITCHING #30 Ref 0 GM Hydroxyzine HCl (Hydroxyzine HCl) 50 Mg Tab 50 MG PO BID Ref 0 TAB Insulin Aspart Inj (Novolog Inj) 100 Unit/Ml Inj 30 UNITS SQ TID Insulin Glargine Inj (Lantus Inj) 100 Unit/Ml Inj 24 UNITS SQ BID Lisinopril (Lisinopril) 10 Mg Tab 10 MG PO DAILY #30 Ref 0 TAB Metformin (Metformin) 1,000 Mg Tab 1000 MG PO BID With meals Blood Sugar Management #60 Ref 0 TAB Metoprolol Succinate ER 24 HR (Toprol XL) 50 Mg Tab 50 MG PO BID #30 Ref 0 TAB Multiple Vitamin (Multi Vitamin) 1 Tab Tab 1 TAB PO DAILY TAB Naproxen (Naprosyn) 500 Mg Tab 500 MG PO BID Take with food #60 Ref 0 TAB Nystatin Topical (Nystatin Topical) 100,000 unit/gm Oint 1 APPLIC TOPICAL BID Apply thin layer to affected area(s) Infection #15 Ref 0 GM [place]-3 Fatty Acids (Fish Oil 1000 mg) 1 Cap Cap 1000 MG PO DAILY Pantoprazole (Pantoprazole) 40 Mg Tab 40 MG PO DAILY Take 30 minutes before breakfast Reflux #30 Ref 0 TAB Polyethylene Glycol 3350 Powder (Miralax Powder) 17 Gm Powd 17 GM PO DAILY Mix and dissolve one measuring cap-ful (17 grams) in water or juice. PRN CONSTIPATION #1 Ref 0 BOTTLE Potassium Chloride ER (Potassium Chloride ER) 10 Meq Cap 10 MEQ PO DAILY Electrolyte Replacement #30 Ref 0 CAP Simvastatin (Zocor) 40 Mg Tab 40 MG PO HS Cholesterol Management #30 Ref 0 TAB Tamsulosin (Tamsulosin) 0.4 Mg Cap 0.4 MG PO HS Manage Prostate Problems #30 Ref 0 CAP Triamcinolone Topical (Triamcinolone Topical) 0.1 % Oint 1 APPLIC TOPICAL BID PRN ITCHING Ref 0 GM Discontinued Medications: Ibuprofen (Ibuprofen) 400 Mg Tab 400 MG PO TID PRN MILD-MOD. PAIN/INFLAMMATION Ref 0 TAB Heyen,Emeka J MD R1 Aug 22, 2016 13:47
--- NOTE | 2016-08-22 14:28 | HHI.FF ---
Face to Face Verification Diagnosis: (1) Spinal stenosis of lumbar region (2) Thoracic myelopathy (3) DM (diabetes mellitus) (4) Frequent falls Home Health Aide Order: To Assist In: Bathing and personal care Instructions: Resumption of previous home health aide I have seen patient Houston Johnston on 08/22/16. My clinical findings support the need for the requested home health care services because: Ltd mobility - disease progression Deconditioned w/ increased weakness Med compliance is questionable Limited ability to care for self High risk of falls I certify that my clinical findings support that this patient is homebound because: Post-op weakness Unsteady gait/balance Need for psychosocial assistance Emeka Galeas MD R1 Aug 22, 2016 14:28
[2016-09-16] MEDS ORDERED: DILA2TAB2 PO (16:15)
[2016-10-20] MEDS ORDERED: TRAZ100T4 (10:09)
[2016-10-20] MEDS ORDERED: BETA0.1C (10:09)
[2016-10-20] MEDS ORDERED: OMEP20CA2 (10:09)
[2016-10-20] MEDS ORDERED: CITA20TA4 (10:09)
[2016-10-20] MEDS ORDERED: ALBU6.7H (10:09)
[2016-10-22] MEDS ORDERED: DILA4TAB2 PO (11:32)
[2016-10-22] MEDS ORDERED: ALPR.5 PO (11:33)
[2016-11-13] MEDS ORDERED: BACL10TA PO (14:10)
[2016-11-20] MEDS ORDERED: DILA4TAB2 PO (10:55)
== END 2016-08-22 16:43 | disposition home health service (06) | DRG 520 ==
LOC: NEPA 11:41 → NEDA 15:11 → NEDH 19:04 → N06B 08-18 17:22 → N03A 08-18 20:41 → N06B 08-18 20:41 → N06A 08-18 22:26
PROVIDERS: ADMIT Family Medicine; ATTEND Family Medicine
PROC: 01N80ZZ Release Thoracic Nerve, Open Approach (ICD-10-PCS; 2016-08-18)
PROC: 00NX0ZZ Release Thoracic Spinal Cord, Open Approach (ICD-10-PCS; principal; 2016-08-18 09:21)
DX: M51.04 Intervertebral disc disorders with myelopathy, thoracic region (principal); E11.42 Type 2 diabetes mellitus with diabetic polyneuropathy; I50.9 Heart failure, unspecified; M48.04 Spinal stenosis, thoracic region; J43.9 Emphysema, unspecified; E78.5 Hyperlipidemia, unspecified; I10 Essential (primary) hypertension; F32.9 Major depressive disorder, single episode, unspecified; M48.06 Spinal stenosis, lumbar region; M51.36 Other intervertebral disc degeneration, lumbar region; F40.240 Claustrophobia; D72.829 Elevated white blood cell count, unspecified; M46.04 Spinal enthesopathy, thoracic region; I25.10 Atherosclerotic heart disease of native coronary artery without angina pectoris; R26.0 Ataxic gait; R20.2 Paresthesia of skin; E66.9 Obesity, unspecified; R29.6 Repeated falls; Z68.32 Body mass index [BMI] 32.0-32.9, adult; I25.2 Old myocardial infarction; F17.210 Nicotine dependence, cigarettes, uncomplicated; Z91.81 History of falling; Z79.4 Long term (current) use of insulin; Z88.0 Allergy status to penicillin; Z88.8 Allergy status to other drugs, medicaments and biological substances
CPT/HCPCS: 70450; 71010; 72020; 72125; 72128; 72131; 72141; 72146; 72148; 76000; 80048; 80053; 80307; 81001; 82010; 82948; 83036; 83735; 85025; 85027; 85610; 85730; 86850; 86900; 86901; 90471; 90714; 94150; 96374; C9113; J0131; J0690; J1100; J1170; J1580; J1815; J2060; J2250; J2270; J2370; J3010; J3410; J7030; J7120